=== PATIENT | male | born 1960 | race Caucasian/White ===

== ENCOUNTER 2018-09-11 08:38 | Observation (INO) | payer BC ==
--- NOTE | 2018-09-11 09:08 | ED ---
HPI Chest Pain - HPI Summary HPI Summary: This pt is a 58 y/o male presenting to [facility] via EMS for left sided chest pain today. Pt reports he had gotten up from bed to go start his car when at around 06:15 he began to have left sided chest pain. He notes he went back to his house and thought he was going to faint. He had profuse diaphoresis and lightheadedness, he thought he would faint. Pt then became a little better after sitting down. However, left chest pain persisted with radiation to his back, left jaw, and left arm with tingling. Chest pain is aggravated with deep breaths. He notes he has been coughing lately along with a sinus infection and postnasal drip for about 1 month. Denies pain or swelling in lower extremity, SOB, nausea, vomiting. EMS administered 3 nitro and 324 mg aspirin with relief on third nitro. 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 His PCP is Dr. Camargo. Pt does drink 3 glasses of wine daily. Denies drug or tobacco use (former smoker , quit 13 years ago). PMHx includes HTN and high cholesterol. Pt is compliant with antihypertensive medications, Losartan. Denies FHx of aneurysms. - History of Current Complaint Chief Complaint: EDChestPainROMI Time Seen by Provider: 09/11/18 08:56 Hx Obtained From: Patient Onset/Duration: Started Hours Ago, Still Present Timing: Lasting Hours Current Severity: Moderate Pain Intensity: 6 Pain Scale Used: 0-10 Numeric Chest Pain Location: Left Anterior Chest Pain Radiates: Yes Chest Pain Radiates To:: Back, Arm - left, Jaw - left Aggravating Factor(s): Deep Breaths Alleviating Factor(s): NTG 123, EMS Tx Associated Signs and Symptoms: Positive: Chest Pain, Tingling - in left arm, Lightheadedness, Diaphoresis, Cough, Back Pain, Sinus Discomfrot - sinus infection and postnasal drip. Negative: Shortness of Breath, Swelling, Syncope , Fever, Chills, Nausea, Abdominal Pain, Vomiting, Edema - Allergy/Home Medications Allergies/Adverse Reactions: Allergies Allergy/AdvReac Type Severity Reaction Status Date / Time Penicillins Allergy Swelling Verified 09/11/18 10:13 Of Face,Lips,& Throat Home Medications: Home Medications Losartan/Hydrochlorothiazide [Losartan Potassium/Hydroc 50-12.5 mg] 1 tab PO DAILY 09/11/18 [History Confirmed 09/11/18] PMH/Surg Hx/FS Hx/Imm Hx Endocrine/Hematology History: Denies: Hx Diabetes Cardiovascular History: Reports: Hx Hypertension - Surgical History Surgery Procedure, Year, and Place: APPENDECTOMY Infectious Disease History: No Infectious Disease History: Denies: Traveled Outside the [place] in Last 30 Days - Family History Known Family History: Positive: Hypertension Family History: No FHx of aneurysms. High cholesterol. Both parents of cancer. - Social History Alcohol Use: Daily Alcohol Amount: 3-4 glasses of wine /day Substance Use Type: Reports: None Hx Tobacco Use: Yes Smoking Status (MU): Former Smoker Review of Systems Positive: Skin Diaphoresis. Negative: Fever, Chills Negative: Erythema ENT: Other - POS: sinus infection, postnasal drip Negative: Sore Throat Positive: Chest Pain Positive: Cough. Negative: Shortness Of Breath Negative: Abdominal Pain, Vomiting, Nausea Negative: dysuria, hematuria Musculoskeletal: Other - POS: back and left sided jaw pain Negative: Myalgia, Edema, Other - NEG: lower extremity pain Negative: Rash Neurological: Other - POS: lightheadedness. NEG: dizziness Positive: Paresthesia - in left arm All Other Systems Reviewed And Are Negative: Yes Physical Exam - Summary Physical Exam Summary: Constitutional: Well-developed, Well-nourished, Alert. (-) Distressed Skin: Warm, Dry HENT: Normocephalic; Atraumatic Eyes: Conjunctiva normal Neck: Musculoskeletal ROM normal neck. (-) JVD, (-) Stridor, (-) Tracheal deviation Cardio: Rhythm regular, rate normal, Heart sounds normal; Intact distal pulses; The pedal pulses are 2+ and symmetric. Radial pulses are 2+ and symmetric. (-) Murmur Pulmonary/Chest wall: Effort normal. (-) Respiratory distress, (-) Wheezes, (-) Rales Abd: Soft, (-) Tenderness, (-) Distension, (-) Guarding, (-) Rebound Musculoskeletal: (-) Edema Lymph: (-) Cervical adenopathy Neuro: Alert, Oriented x3 Psych: Mood and affect Normal Triage Information Reviewed: Yes Vital Signs On Initial Exam: Initial Vitals Temp Pulse Resp BP Pulse Ox 98.8 F 87 20 135/98 98 09/11/18 08:42 09/11/18 08:42 09/11/18 08:42 09/11/18 08:42 09/11/18 08:42 Vital Signs Reviewed: Yes Diagnostics - Vital Signs Vital Signs Temp Pulse Resp BP Pulse Ox 09/11/18 08:42 98.8 F 87 20 135/98 98 - Laboratory Result Diagrams: 09/11/18 08:19 09/11/18 08:19 Lab Statement: Any lab studies that have been ordered have been reviewed, and results considered in the medical decision making process. - Radiology Chest XR Radiology Interpretation Completed By: Radiologist Summary of Radiographic Findings: IMPRESSION: No active cardiopulmonary disease. Dr. Mota has reviewed this report. - CT Chest CTA CT Interpretation Completed By: Radiologist Summary of CT Findings: IMPRESSION: No evidence of pulmonary embolus is noted. Dr. Mota has reviewed this report. - EKG 08:50 Cardiac Rate: NL - at 85 bpm EKG Rhythm: Sinus Rhythm Summary of EKG Findings: No STEMI. Chest Pain Course/Dx - Course Assessment/Plan: Pt is a 58 y/o male who presents to the ED via EMS for left sided chest pain today. Pt reports he had gotten up from bed to go start his car when at around 06:15 he began to have left sided chest pain. He notes he went back to his house and thought he was going to faint. He had profuse diaphoresis and lightheadedness, he thought he would faint. Pt then became a little better after sitting down. However, left chest pain persisted with radiation to his back, left jaw, and left arm with tingling. Chest pain is aggravated with deep breaths. He notes he has been coughing lately along with a sinus infection and postnasal drip for about 1 month. Blood work is unremarkable, except for glucose of 159. EKG shows normal sinus rhythm at 85 bpm. Chest XR is negative. Chest CTA shows no evidence of pulmonary embolus is noted. I discussed the case with Dr. Meyers, hospitalist, who accepted the pt for admission. Differential diagnosis acute MA vs PE vs angina. - Chest Pain Differential Diagnosis/HQI/PQRI: Acute MA, Angina, Pulmonary Embolism - Diagnoses Provider Diagnoses: Chest pain, unspecified - Provider Notifications Discussed Care Of Patient With: Sunni Meyers - hospitalist Time Discussed With Above Provider: 10:25 Instructed by Provider To: Admit As Inpatient Discharge - Sign-Out/Discharge Documenting (check all that apply): Patient Departure - Admit [place] [facility] [place]charge Plan Condition: Stable Disposition: ADMITTED TO [facility] Referrals: Rayshawn Camargo DO [Primary Care Provider] - - Attestation Statements Document Initiated by Scribe: Yes Documenting Scribe: Candi Hill Provider For Whom Scribe is Documenting (Include Credential): Cuco Mota MD Scribe Attestation: Candi Rodríguez, scribed for Cuco Mota MD on 09/11/18 at 1042. Status of Scribe Document: Ready
[2018-09-11 09:22] LABS: ABS Basophils 0 10^3/ul (0-0.2); ABS Eosinophils 0.3 10^3/ul (0-0.6); ABS Lymphocytes 2.5 10^3/ul (1.0-4.8); ABS Monocytes 0.8 10^3/ul (0-0.8); ABS Neutrophils 3.2 10^3/ul (1.5-7.7); ABS Nucleated RBC 0 10^3/ul; Hematocrit 44 % (42-52); Hemoglobin 15.1 g/dl (14.0-18.0); Lymphocyte % 36.5 %; Mean Corpuscular HGB Conc 34 g/dl (31-36); Mean Corpuscular Hemoglobin 31 pg (27-31); Mean Corpuscular Volume 91 fL (80-94); Mean Platelet Volume 7.8 fL (7.4-10.4); Nucleated Red Blood Cells % 0.1; Platelet Count 275 10^3/ul (150-450); Red Blood Count 4.85 10^6/ul (4.00-5.40); Red Cell Distribution Width 13 % (10.5-15); White Blood Count 6.9 10^3/ul (3.5-10.8)
[2018-09-11] MEDS ORDERED: Nitroglycerin 2% OINT* 1 GM PAK TOPICAL ONE (09:22)
[2018-09-11 09:38] LABS: Albumin 3.8 g/dL (3.2-5.2); Albumin/Globulin Ratio 1.3 (1-3); BUN/Creatinine Ratio 21.1 (8-20); Calcium 9.7 mg/dL (8.6-10.3); EGFR African American 98.9 (>60); EGFR Non-African American 81.7 (>60); Globulin 2.9 g/dL (2-4); Potassium 4.3 mmol/L (3.5-5.0); Total Bilirubin 0.5 mg/dL (0.2-1.0); Total Protein 6.7 g/dL (6.4-8.9)
[2018-09-11] MEDS ORDERED: Iohexol 350* (CONTRAST) 500 ML MDV IV ONE (09:50)
[2018-09-11] MEDS ORDERED: Acetaminophen TAB* 325 MG PO PRN (11:24)
[2018-09-11] MEDS ORDERED: Morphine VIAL* 4 MG/ML VIAL (1 ml vial) IV PRN (11:24)
[2018-09-11] MEDS: Heparin VIAL(*) 5000 UNITS/ML VIAL (FIVE THOUSAND) SUBCUT SCH ×2 (13:07→22:11)
--- NOTE | 2018-09-11 13:45 | HP ---
CC: Dr. Camargo * HISTORY AND PHYSICAL: DATE OF ADMISSION: 09/11/18 PRIMARY CARE PROVIDER: Dr. Camargo. CHIEF COMPLAINT: Chest pain. HISTORY OF PRESENT ILLNESS: Bob Pratt is a 58-year-old male with history of hypertension, who presented to the hospital complaining of chest pain. The patient stated that the chest pain occurred at awakening at 4:00 a.m. The patient wakes very early in the morning and he stated that at that point he already had upper back pain radiating to his chest. He also stated that he felt somewhat short of breath. He went outside to wipe snow off his car and on the way back he started experiencing more chest pain and more shortness of breath. The chest pain was apparently pleuritic radiating from his upper back. He also felt that he had left side of his jaw numbness and his tongue felt numb for a moment. Currently, he still is experiencing chest pain when he takes a deep breath radiating from his upper thoracic back to the front. He denies any shortness of breath. He had a similar episode of pain 2 years ago at [place] when his blood pressure was elevated, but today, he thinks the pain is more intense. The patient's initial workup included an EKG that showed some baseline abnormalities, but no acute MS and troponin that is negative. The patient is going to be placed on overnight observation with a diagnosis of chest pain, to rule out angina. PAST MEDICAL HISTORY: History of hypertension. MEDICATIONS: Outpatient medications include: 1. Omeprazole on a p.r.n. basis. 2. Losartan/hydrochlorothiazide 50/12.5 mg 1 tablet daily. ALLERGIES: PENICILLIN. FAMILY HISTORY: Positive for both parents having history of hypertension. Father in his 60s secondary to prostate cancer and mother secondary to bladder cancer in her 70s. SOCIAL HISTORY: The patient denies any tobacco or drug use. He drinks 2 to 3 glasses of wine a day. 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 REVIEW OF SYSTEMS: Please see history of present illness. The patient stated that he has good exercise tolerance and his work requires for him to lift and carry things and he has not had any issues with that. The chest pain started happening may be last night, but definitely in the middle of the morning at 4: 00 a.m. as mentioned above. The chest pain is pleuritic radiating to bilateral front of his chest. Currently, the patient still feels some discomfort in his chest at 3 out of 10, which goes up to 5 to 7 out of 10 with expiration. The patient also stated that he had seen his primary care provider for his sinus congestion and postnasal drip. He was advised to use a humidifier, but he has not purchased it yet. The patient denies any problems with sinus pain or fevers or cough. The remaining 12 systems were reviewed with the patient and were otherwise negative. PHYSICAL EXAMINATION GENERAL: The patient is a very pleasant 58-year-old male, who is in no acute distress. Alert, awake, and oriented x3. VITAL SIGNS: Blood pressure of 144/86, heart rate of 70 and regular, respiratory rate 15, oxygen saturation 98% on room air, temperature of 98.8. HEENT: Head atraumatic, normocephalic. Eyes: Pupils are equal, round, and reactive to light and accommodation. Oropharynx clear. Mucosa moist. NECK: Supple. No JVD, no bruits bilaterally. RESPIRATORY: Clear to auscultation bilaterally. CARDIOVASCULAR: Regular rate and rhythm. No murmur. ABDOMEN: Soft. Nontender. Bowel sounds are present in all 4 quadrants. EXTREMITIES: There is no edema. Pulses are +2 bilaterally. There is no clubbing or cyanosis. BACK: The patient has no point tenderness on the upper back palpation, but the pain is definitely worse when he takes a deep breath. NEUROLOGIC: Speech is clear. Cranial nerves II through XII grossly intact. Motor strength is 5/5 bilaterally. DIAGNOSTIC STUDIES/LAB DATA: White blood cell count of 6.9, hemoglobin is 15.1 , hematocrit of 44, and platelets of 175,000. Sodium was 138, potassium of 4.3, chloride 105, carbon dioxide 25, BUN 20, creatinine 0.95. Liver function tests are unremarkable. Troponin of 0. The patient's EKG showed normal sinus rhythm with a heart rate of 85 beats per minute with nonspecific ST changes, but no definite ST elevation or depression in septal leads. Comparing with an EKG from 2014, changes were similar. CT angiogram of the chest obtained today in the ED, impression: "no evidence of pulmonary embolus is noted". ASSESSMENT AND PLAN: 1. In regards to the patient's chest pain, some of the characteristic of the patient's chest pain appear to be angina related viz that it occurred with exercise that the patient had dyspnea with it. Also, the pain radiated to the jaw and was associated with some tongue numbness. On the other hand, the patient's pain right now is purely pleuritic. It still continues despite negative troponin and is definitely worse with taking deep breath and worsened after the patient was shoveling snow off his vehicle. At this point, the patient is going to be placed on overnight observation on personnel monitor bed. His troponins are going to be followed and if the troponins are negative, the patient is going to undergo a cardiac stress test in the morning. 2. In regards to the patient's hypertension, the patient is going to be continued on his losartan throughout his hospital stay. Hydrochlorothiazide is going to be held. 3. For DVT prophylaxis, the patient is going to be placed on heparin subcutaneously. 4. For patient's code status, the patient's code status is full and his surrogate is his . TIME SPENT: Approximately 65 minutes were spent on admission of this patient; more than half of that time was spent [id number] with the patient during the interview and physical exam [id number]/[facility] #: [id number] MTDD
[2018-09-12] MEDS: Heparin VIAL(*) 5000 UNITS/ML VIAL (FIVE THOUSAND) SUBCUT SCH (05:28)
[2018-09-12 07:58] VITALS: BP 141/96
[2018-09-12] MEDS ORDERED: Losartan TAB* 25 MG PO SCH (09:00)
[2018-09-12] MEDS ORDERED: Aspirin EC TAB* 325 MG PO SCH (09:00)
--- NOTE | 2018-09-12 22:31 | DS ---
DISCHARGE SUMMARY: DATE OF ADMISSION: 09/11/18 DATE OF DISCHARGE: 09/12/18 ADMITTING PROVIDER: Dr. Sunni Meyers. ATTENDING PHYSICIAN ON THE DAY OF DISCHARGE: Juan Jose Will MD PRIMARY CARE PROVIDER: Dr. Rayshawn Camargo. CHIEF COMPLAINT: Chest pain. PRINCIPAL DIAGNOSES: 1. Acute coronary syndrome, ruled out. 2. Hypertension. 3. Diabetes mellitus. HISTORY OF PRESENT ILLNESS/HOSPITAL COURSE: Bob Pratt is a 58-year-old male with a past medical history of hypertension; occasional GERD, taking PPIs on a p.r.n. basis. Please see H and P of Dr. Sunni Meyers for full details. He woke up with some substernal chest pressure, episodic shortness of breath, some radiation to the upper back, some jaw numbness and tongue numbness. He was noted to have a similar episode 2 years ago at [place] when his blood pressure was elevated, though the pain was more intense. He was referred to the hospitalist service for admission. Initial troponins were negative at 0.00 , 0.00, 0.01. His EKG demonstrated some inferior Q waves, unchanged from 2014 and T-wave inversion in V1, also unchanged. Received a nuclear medicine stress test on hospital day #1, which showed ejection fraction of 64%. No focal wall motion abnormality. No definite fixed or reversible perfusion defect identified , assessment was low risk. He was noted to be hyperglycemic at 159. Admission hemoglobin A1c was checked and elevated at 6.7, diagnostic of diabetes mellitus. Of note, this returned after he had been discharged. He had been chest pain free and asymptomatic overnight. He was recommended to follow up with his primary care provider, Dr. Camargo and would recommend also outpatient echocardiogram given his abnormal EKGs with inferior Q waves. We will also check a fasting lipid panel as an outpatient, latest in our system was from October 2014, LDL of 155, HDL 39.5. He and his initially were [place] [facility] when they felt unwell and they stopped at the [employer], they measured his blood pressure as elevated to 190/110. He got 3 nitroglycerin and aspirin at that time and had improvement in the symptoms. His blood pressure throughout the hospital stay was improved, mostly 140s/80s. DISCHARGE MEDICATIONS: Include: 1. Aspirin 81 mg daily. 2. Losartan/hydrochlorothiazide 50/12.5 mg daily. 3. Omeprazole 20 mg p.o. p.r.n. daily. FOLLOWUP: He is to follow up with Dr. Rayshawn Camargo within 7 days of discharge. I am recommending he get an echocardiogram and a fasting lipid panel and as noted, his A1c has now returned as diagnostic of diabetes mellitus and consideration for exercise, weight loss, dietary adjustments, and possible metformin is encouraged. TIME SPENT ON DISCHARGE: 35 minutes. [id number]/[facility] #: [id number] ODALYS
== END 2018-09-12 14:30 | disposition home or self-care (01) ==
LOC: ED 08:38 → MEDTELE 11:21
PROVIDERS: ADMIT Internal Medicine; ATTEND Internal Medicine
DX: R07.9 Chest pain, unspecified (principal); I10 Essential (primary) hypertension; E11.9 Type 2 diabetes mellitus without complications; K21.9 Gastro-esophageal reflux disease without esophagitis; Z79.82 Long term (current) use of aspirin; R42 Dizziness and giddiness; R05 Cough; Z87.891 Personal history of nicotine dependence; Z88.0 Allergy status to penicillin
CPT/HCPCS: 36415; 71045; 71275; 78452; 80053; 83036; 83605; 84484; 85025; 93005; 93017; 96372; 99284; A9270-GY; A9502; G0378; J1644; Q9967

== ENCOUNTER 2019-08-23 06:42 | Day surgery (SDC) | payer BC ==
[~2019-08-23 06:42] MED LIST: Buffered Lidocaine 1% SYRIN* 1 ML/SYRINGE INTRADERM ONE; Famotidine IV* 10 MG/ML 2 ML (20 mg) IV ONE; Lactated Ringers 1000 ML Bag* 1,000 ML IV SCH
[2019-08-23] MEDS ORDERED: Buffered Lidocaine 1% SYRIN* 1 ML/SYRINGE INTRADERM ONE (08:36)
[2019-08-23] MEDS ORDERED: Clindamycin 900 MG/D5W BAG(*) 900 MG/50 ML BAG IVPB ONE (08:36)
[2019-08-23] MEDS ORDERED: Famotidine IV* 10 MG/ML 2 ML (20 mg) ONE (08:53)
[2019-08-23] MEDS ORDERED: Lidocaine 1% INJ* 10 MG/ML 30 ML SDV ONE (10:15)
[2019-08-23] MEDS ORDERED: KETAMINE HCL* 50 MG/ML 10 ML VIAL ONE (10:17)
[2019-08-23] MEDS ORDERED: fentaNYL* 50 MCG/ML 2 ML VIAL (100 MCG VIAL) ONE (10:17)
[2019-08-23] MEDS ORDERED: Midazolam* 1 MG/ML 5 ML VIAL (5 MG) ONE (10:17)
[2019-08-23] MEDS ORDERED: fentaNYL* 50 MCG/ML 2 ML VIAL (100 MCG VIAL) IV PRN (10:20)
[2019-08-23] MEDS ORDERED: Naloxone* 0.4 MG/ML 1 ML VIAL IV PRN (10:20)
[2019-08-23] MEDS ORDERED: Ketorolac INJ* 30 MG/ML 1 ML VIAL IV PRN (10:20)
[2019-08-23] MEDS ORDERED: Ondansetron INJ* 2 MG/ML VIAL IV PRN (10:20)
[2019-08-23] MEDS ORDERED: HYDROcodone/ACETAMIN 5-325 MG* 1 TAB PO PRN (10:20)
[2019-08-23] MEDS ORDERED: oxyCODONE/Acetamin 5/325 MG* TAB PO PRN (10:20)
[2019-08-23] MEDS ORDERED: Midazolam* 1 MG/ML 2 ML VIAL (2 MG) ONE (10:58)
--- NOTE | 2019-08-23 11:53 | BRIEFOPN ---
Brief Operative/Procedure Note - Operation Details Pre-Op Diagnosis: SCC of base of tongue Post-Op Diagnosis: Same Procedures: PowerPort placement Surgeon(s)/Proceduralists: Mindi Gamez MD Anesthesia: MAC Estimated Blood Loss: 10ml Findings: Successful placement of Power Port Specimen(s)/Culture(s) Description: None Complications: None
[2019-08-23] MEDS ORDERED: Bupivacaine 0.5%* 50 ML MDV VIAL ONE (11:58)
[2019-08-23 12:53] VITALS: BP 142/81
--- NOTE | 2019-08-25 10:13 | OP ---
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 He is scheduled to undergo chemo or radiation. He was seen in clinic to discuss a port placement. Risks were discussed including but not limited to bleeding, infection, or pneumothorax. He agreed to proceed with the procedure. DESCRIPTION: The patient was brought to the OR and placed in the supine position of our table. SCDs were placed. The patient was warmed. He received clindamycin. MAC anesthesia was administered. The right neck and upper chest were prepped and draped in the usual sterile fashion. A timeout confirming the patient's name, date of , and procedure was called. Lidocaine 1% was injected into the skin over the right internal jugular vein. The vein was cannulated with a needle under ultrasound guidance. The wire was advanced through the needle, and the needle was removed. Fluoroscopy confirmed correct placement of the wire in the superior vena cava. Next, lidocaine 1% was injected into the skin at the planned port site. A transverse incision was made with a scalpel and carried down to the fascia with electrocautery. A pocket under the skin was made for the port using blunt dissection and electrocautery. Lidocaine 1% was then injected into the skin overlying the catheter location. A stab incision was made at the wire. The catheter was then tunneled through the subcutaneous tissue from the pocket to the wire. The vein was dilated, and then the pull-away sheath was placed into the vein. Fluoroscopy confirmed placement of the sheath in the superior vena cava. The catheter was advanced into the sheath as the sheath was pulled away and out. Under fluoroscopy, the catheter was pulled back until the tip was at the cavoatrial junction. The catheter was then cut to the appropriate length. The catheter was connected to the port. The port was placed into the subcutaneous pocket and sutured to the fascia using 3-0 Prolene on either side. A Velasquez needle was used to draw back blood and flush the port. A total of 4 mL of heparin 5000 units/5 mL was flushed through the port and catheter. The subcutaneous pocket was closed with interrupted 3-0 Vicryl in the deep dermal layer. The skin was closed with a running 4-0 Vicryl. The neck incision was closed with 4-0 Vicryl. Steri-Strips were placed over both incisions. The chest incision was covered with sterile gauze and Tegaderm. The patient tolerated the procedure well. He was brought to recovery in stable condition. A chest x-ray in recovery confirmed correct placement of the port and catheter in the superior vena cava without complication.
== END 2019-08-23 13:12 | disposition home or self-care (01) ==
LOC: OR 06:42
PROVIDERS: ATTEND Surgery Surgical Critical Care
DX: C01 Malignant neoplasm of base of tongue (principal); Z87.891 Personal history of nicotine dependence; I10 Essential (primary) hypertension; K21.9 Gastro-esophageal reflux disease without esophagitis; R73.01 Impaired fasting glucose
CPT/HCPCS: 71045; 76000; C1788; J1642; J2250; J3010; J3490

== ENCOUNTER 2019-08-26 09:11 | Observation (INO) | payer BC ==
[2019-08-26] MEDS ORDERED: Clindamycin 900 MG/D5W BAG(*) 900 MG/50 ML BAG IVPB ONE (12:45)
[2019-08-26] MEDS ORDERED: fentaNYL* 50 MCG/ML 2 ML VIAL (100 MCG VIAL) ONE (13:18)
[2019-08-26] MEDS ORDERED: Midazolam* 1 MG/ML 10 ML VIAL (10 MG) ONE (13:18)
[2019-08-26] MEDS ORDERED: Acetaminophen TAB* 325 MG PO PRN (13:32)
[2019-08-26] MEDS ORDERED: Ondansetron INJ* 2 MG/ML VIAL IV PRN (13:34)
--- NOTE | 2019-08-26 14:39 | HP ---
History of Present Illness - History of Present Illness Reason for Visit: s/p PEG tube insertion, tonsillar ca History of Present Illness: Pt with tonsillar CA, started XRT last Monday, needs PEG tube, successfully placed 08-26-19 - Past Medical History Cardiac: HTN Gastrointestinal: GERD Heme/Onc: Cancer - Past Surgical History Past Surgical History: None - Past Family History Family History: None - Past Social History Smoke: Quit Alcohol: Rare Drugs: None Review of Systems - Medications/Allergies Allergies/Adverse Reactions: Allergies Allergy/AdvReac Type Severity Reaction Status Date / Time Penicillins Allergy Intermediate Swelling Verified 08/16/19 15:12 Of Face,Lips,& Throat Medications: Current Medications Acetaminophen (Tylenol Tab*) 650 mg PO Q6H PRN PRN Reason: PAIN - MILD Hydromorphone HCl (Dilaudid Inj1s*) 1 mg IV SLOW PU Q4H PRN PRN Reason: PAIN - SEVERE Sodium Chloride (Ns 0.9% 1000 Ml) 1,000 mls @ 75 mls/hr IV PER [facility] [place] Ondansetron HCl (Zofran Inj*) 4 mg IV Q4H PRN PRN Reason: NAUSEA/VOMITING
[2019-08-26] MEDS: NS 0.9% 1000 ML** 1,000 ML IV SCH (15:34)
--- NOTE | 2019-08-26 16:04 | PN ---
Progress Note - Progress Note Date of Service: 08/26/19 Note: post peg check doing well, very minimal pain thirsty VSS nad, alert +bs, soft, sides non tender stable, will monitor Rashard Grimaldo mD
--- NOTE | 2019-08-26 16:12 | PRO ---
CC: Dr. Camargo; Dr. Barreto * DATE OF PROCEDURE: 08/26/19 - ROOM #[id number] PROCEDURE: EGD with PEG tube placement. INDICATION: Tonsillar cancer, need for PEG tube. REFERRING PHYSICIAN: Dr. Camargo. MEDICATIONS GIVEN: 1. Clindamycin 900 mg IV x1. 2. 100 mcg IV fentanyl. 3. 11 mg IV Versed. DESCRIPTION OF PROCEDURE: After the EGD procedure with PEG tube placement including risks, benefits, and alternatives, not limited to perforation, surgery , and/or and infection were related to the patient, written consent was then obtained, IV medication was given including clindamycin, and a bite-block was placed between the teeth. An Olympus gastroscope was then inserted into the patient's mouth, advanced down the esophagus, into the stomach, into the distal duodenal. In the esophagus, the GE junction was normal. Scope was advanced through the GE junction into the body of the stomach. Retroflex view was unremarkable. Forward view did reveal a few gastric erosions. Additionally , the scope was passed through the widely patent pylorus, into the duodenal bulb which contained erosions. Scope was withdrawn into the stomach where a CLOtest was obtained to rule out H. pylori. At that point, I evaluated his abdomen. It had been shaved and cleaned prior. Using the 5 fingerbreadths down , 5 fingerbreadths over rule, I then found a spot using finger indentation; however, I really could not see my finger. I moved more medial and more proximal and eventually I was able to find a very good finger indentation spot approximately 5 fingerbreadths down and 2 to 3 fingerbreadths over from the bottom of the xiphoid. He does have a very high xiphoid. All of this also was confirmed with good transillumination of the area. The area was marked and then was cleaned again. I then used 1% lidocaine to anesthetize the overlying skin. The finder needle was then inserted. It was not seen to extend into the lumen of the stomach. I replaced it with a trocar needle and it extended into the stomach with just 3 cm needle insertion. I withdrew the trocar needle and placed the blue wire through the overlying hub. It was grasped with a snare and was withdrawn from the patient. I then tied the PEG tube onto the blue wire and the PEG tube was successfully pulled into place. I then performed a second-look endoscopy, which confirmed successful placement of the PEG tube in the patient's stomach. The skin was at approximately 2-3/4 to 3 cm. The bumper was placed at 4 cm. The patient tolerated the procedure well and will be admitted to the hospital for a 23-hour observation as per my typical protocol. IMPRESSION: 1. Complete upper endoscopy into the distal duodenum with successful PEG tube placement in the stomach and biopsy for Helicobacter pylori. 2. Please see the body of the procedure report. [id number]/[facility] #: [id number] [facility]
[2019-08-26] MEDS: HYDROmorphone INJ1* 1 MG/ML SYRINGE IV SLOW PU PRN ×2 (16:49→23:19)
[2019-08-27] MEDS: NS 0.9% 1000 ML** 1,000 ML IV SCH (04:34)
[2019-08-27 05:32] LABS: ABS Eosinophils 0.1 10^3/ul (0-0.6); ABS Lymphocytes 0.8 10^3/ul (1.0-4.8); ABS Monocytes 1.4 10^3/ul (0-0.8); ABS Neutrophils 6.3 10^3/ul (1.5-7.7); Eosinophil % 1.5 %; Hematocrit 39 % (42-52); Lymphocyte % 9.2 %; Mean Corpuscular HGB Conc 36 g/dL (31-36); Mean Corpuscular Hemoglobin 33 pg (27-31); Mean Corpuscular Volume 92 fL (80-94); Mean Platelet Volume 7.9 fL (7.4-10.4); Platelet Count 200 10^3/uL (150-450); Red Blood Count 4.21 10^6 /uL (4.18-5.48); Red Cell Distribution Width 13 % (10-15); White Blood Count 8.7 10^3/uL (3.5-10.8)
[2019-08-27] MEDS ORDERED: Calcium Carbonate CHEW TAB* 500 MG (TUMS) PO PRN (10:11)
[2019-08-27] MEDS ORDERED: Pantoprazole IV* 40 MG IV SCH (11:00)
[2019-08-27 15:30] VITALS: BP 142/94
--- NOTE | 2019-08-27 20:49 | DS ---
DISCHARGE SUMMARY: DATE OF ADMISSION: 08/26/19 DATE OF DISCHARGE: 03/09 DISCHARGE DIAGNOSES: 1. Status post percutaneous gastrostomy placement. 2. Squamous cell cancer of the throat. 3. Hypertension. 4. Gastroesophageal reflux disease. HISTORY: This 58-year-old man has begun radiation treatment for an ENT cancer. Now one week in, he is still able to eat. He does have a history of GERD, taking omeprazole sporadically though in the last couple of weeks he has had an increased need for Tums and has taken a few more omeprazole than usual. He denies dietary indiscretions over the holidays. Yesterday, he had a PEG tube placed. EG junction was said to be normal. There were no technical problems. He says that overnight he was uncomfortable with indigestion. This morning after coming back from his radiation treatment, he had some vomiting and said that he does that very very rarely. He seemed to describe quite classic acid dyspepsia, thus was given Tums and a dose of IV pantoprazole and instructed to restart his omeprazole when he got home and take it daily throughout the rest of his treatment course. A couple of hours later, he was feeling much better. He had instructions from the dietary department on care of his tube. He does not require tube feedings at the moment. CONDITION ON DISCHARGE: Good. DISCHARGE MEDICATIONS: Unchanged from admission and he will be takin. Losartan/hydrochlorothiazide. 2. Tums p.r.n. 3. Omeprazole 20 mg every morning. DISCHARGE FOLLOWUP: Will be with Dr. Irvin, Dr. Barreto and his primary physician , Dr. Camargo. [id number]/[facility] #: [id number] [facility]ITAL[facility]
== END 2019-08-27 16:53 | disposition home or self-care (01) ==
LOC: ENDO 09:11 → SSU 13:28
PROVIDERS: ADMIT Internal Medicine Gastroenterology; ATTEND Internal Medicine Gastroenterology
DX: C14.0 Malignant neoplasm of pharynx, unspecified (principal); I10 Essential (primary) hypertension; K21.9 Gastro-esophageal reflux disease without esophagitis
CPT/HCPCS: 36415; 85025; 87077; 96374; 96375; 96376; 99156; 99157; G0378; J1170; J2250; J2405; J3010

== ENCOUNTER 2019-08-30 11:39 | Inpatient (IN) | payer BC ==
[2019-08-30] MEDS ORDERED: Magnesium Hydroxide LIQ* 30 ML UDC PO ONE (12:03)
[2019-08-30] MEDS ORDERED: Enoxaparin(*) 40 MG/0.4 ML SYR SUBCUT SCH (13:00)
--- OUTSIDE RECORDS SUMMARY | 2019-08-30 13:34 | XMS REPORT | Continuity of Care Document ---
:1960 External Reference #:[id number] Author Name Chau Kc M.D. Address [address] [place] [address] Care Team Providers Name Role Phone Rayshawn Camargo D.O. Care Team Information Claims Processor [phone] Problems Active Problems Provider Date Malignant tumor of oropharynx Fang Eddy NP Onset: 06/27/2019 Social History Type Date Description Comments Sex Unknown Tobacco Use Start: Unknown End: Unknown Former Cigarette Smoker ETOH Use Daily Use Of Alcohol Recreational Drug Use Has Used In Past Allergies, Adverse Reactions, Alerts Active Allergies Reaction Severity Comments Date Penicillin 04/10/2019 Medications Active Medications SIG Qnty Indications Ordering Provider Date Nasonex 2 squirts each 51gm Chau Kc M.D. 06/20/2019 50mcg/Act nostril every day Suspension Losartan 1 by mouth every Unknown Potassium/Hydrochlorot day hiazide 50-12.5mg Tablets History Medications Percocet 1-2 by mouth four 20tabs Chau Kc, 06/20/2019 - 5-325mg times a day as M.DTatyana 06/26/2019 Tablets needed for pain Immunizations Description No Information Available Vital Signs Date Vital Result Comment 07/05/2019 11:41am Weight 193.00 lb Height 67 inches 5'7" BMI (Body Mass Index) 30.2 kg/m2 Heart Rate 114 /min O2 % BldC Oximetry 97 % Body Temperature 98.1 F Pain Level 0 06/27/2019 3:41pm Weight 190.00 lb Height 67 inches 5'7" BMI (Body Mass Index) 29.8 kg/m2 BP Systolic 125 mmHg BP Diastolic 78 mmHg Heart Rate 88 /min O2 % BldC Oximetry 96 % Body Temperature 98.2 F Pain Level 0 Results Test Acquired Date Facility Test Result H/L Range Note Laboratory test 07/05/2019 [facility] Point of Care 141 mg/dL High 70-100 [address] [place] [address] [phone] Laboratory test 06/20/2019 [facility] Surgical SEE RESULT [address] [address] [phone] Laboratory test 04/23/2019 [facility] Cytology SEE RESULT 3 , [address] Non[place] [address] [phone] 1 Land Development Project Manager: [id number] 2 SEE RESULT BELOW Name: SACHA BABB Markie : [address]: Chau Kc MD Acct: [id number] Unit: [id number] AGE: 58 Location: [facility] Re06/20/19 SEX: M Status: REG REF SPEC: [id number] JOSE: 06/20/19 [facility] [address]: Chau Kc MD REQ: [id number] RECD: 06/20/19 STATUS: SOUT _ ORDERED: LEVEL 4, IMMUNO-FIRST, IMMUNO-ADDL/6 COMMENTS: [id number] ADDENDUM A p16 immunohistochemical stain, with appropriately reacting controls, was performed and is strongly and diffusely positive, 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 Addendum Signed (signature on file) Hina Hearn MD 02/06 0949 FINAL DIAGNOSIS Right neck, excision: -- Metastatic basaloid squamous cell carcinoma. COMMENT: Immunohistochemical stains, with appropriately reacting controls, were performed with the following results: CK5/6 positive P63 positive CD45 negative in malignant cells, positive in background lymphocytes CD56 negative Chromogranin negative Synaptophysin negative Dr. Sen reviewed this case in intradepartmental consultation and agrees with the diagnosis. A p16 immunohistochemical stain is pending to search for HPV-related viral cytopathic effect and the results will be reported in an CONTINUED ON NEXT PAGE DEPARTMENT OF PATHOLOGY, [address] [place] [address] Graham Sen M.D. Director [facility] # [id number] addendum. CLINICAL HISTORY No history given GROSS DESCRIPTION The specimen is received in formalin labeled, Right Branchial Cyst, and consists of a 3.0 x 2.7 by up to 1.5 cm mckinnon-red rubbery focally disrupted unilocular cyst with a small amount of adherent yellow fat. The cyst contains scant blood-tinged fluid. The cut surface is rubbery to focally friable mckinnon-pink with mild focal hemorrhage. The specimen is inked, serially sectioned and entirely submitted in four cassettes. Signed by and Reported on: Hina Hearn MD 06/25/19 1045 END OF REPORT DEPARTMENT OF PATHOLOGY, [address] [place] [address] Graham Sen M.D. Director [facility] # [id number] 3 [id number] 4 SEE RESULT BELOW Name: SACHA BABB : [address]: Chau Kc MD Acct: [id number] Unit: [id number] AGE: 58 Location: [facility] Re04/23/19 SEX: M Status: REG REF SPEC: [id number] JOSE: 04/23/19 [facility] [address]: Chau Kc MD REQ: [id number] RECD: 04/23/19 STATUS: SOUT _ ORDERED: [facility], LEVEL 4 COMMENTS: [id number] FINAL DIAGNOSIS Neck, right, fine needle aspirate: --Inflammatory cells. A cell block was prepared in the evaluation of this specimen. Smears and cell block reveal similar findings. A. NECK RIGHT - RIGHT NECK MASS FINE NEEDLE ASPIRATION CLINICAL HISTORY Right neck mass. GROSS DESCRIPTION 1 Alcohol fixed slide(s) received from clinician, 5 Air dried slide(s)(4 stained, 1 unstained) and needle rinse in formalin for cell block. Signed by and Reported on: Hina Hearn MD 04/25/19 1640 END OF REPORT DEPARTMENT OF PATHOLOGY, [address] [place] [address] Graham Sen M.D. Director [facility] # [id number] Procedures Date Code Description Status 06/20/2019 23954 Exc.Branchial Cleft Cyst Completed 06/20/2019 06417 Exc.Branchial Cleft Cyst Completed 06/20/2019 96912 Anesthesia Head Neck Posterior Trunk Integumentary Unspec Completed 04/23/2019 10287 Fine Needle Aspiration Biopsy Inlcd Ultrasound Guidance Completed 04/10/2019 12476 Ultrasound Head/Neck Completed 04/10/2019 66371 Fiberoptic Laryngoscopy,Diag. Completed Medical Devices Description No Information Available Encounters Type Date Location Provider Dx Diagnosis Office Visit 04/30/2019 Main Office Chau Kc M.D. R22.1 Localized swelling, 3:45p mass and lump, neck R13.10 Dysphagia, unspecified Office Visit 04/10/2019 9:30a Main Office Chau Kc, R22.1 Localized swelling, M.D. mass and lump, neck R13.10 Dysphagia, unspecified Assessments Date Code Description Provider 07/05/2019 C76.0 Malignant neoplasm of head, face and neck Chau Kc M.D. 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 04/30/2019 R22.1 Localized swelling, mass and lump, neck Chau Kc M.D. 04/30/2019 R13.10 Dysphagia, unspecified Chau Kc M.D. 04/23/2019 R22.1 Localized swelling, mass and lump, neck Chau Kc M.D. 04/10/2019 R22.1 Localized swelling, mass and lump, neck Chau Kc M.D. 04/10/2019 R13.10 Dysphagia, unspecified Chau Kc M.D. Plan of Treatment No Information Available Functional Status Description No Information Available Mental Status Description No Information Available Referrals Refer to Dr Reason for Referral Status Appt Date Chau Kc M.D. AUTH FOR PET SCAN Created [address] [place] [phone] Chau Kc M.D. NO AUTH REQ FOR SURGERY Created [address] [place] [phone]
--- OUTSIDE RECORDS SUMMARY | 2019-08-30 13:34 | XMS REPORT | Continuity of Care Document ---
:1960 External Reference #:[id number] Author Name Mindi Gamez MD (transmitted by agent of provider Carol Tello) Address [address] [place] [id number] Care Team Providers Name Role Phone Justin Nunez M.D. - Hematology & Care Team Information Public Health Program Manager Oncology Rayshawn Camargo DO - Family Care Team Information Public Health Program Manager Medicine Problems Description No Information Available Social History Type Date Description Comments Sex Unknown ETOH Use Drinks 3 Alcoholic Beverages Per Day Tobacco Use Start: Unknown End: Patient is a former smoker Unknown Recreational Drug Use Denies Drug Use Smoking Status Reviewed: 08/01/19 Patient is a former smoker Exercise Type/Frequency Does not exercise Allergies, Adverse Reactions, Alerts Active Allergies Reaction Severity Comments Date Penicillin 07/23/2019 Medications Active Medications SIG Qnty Indications Ordering Provider Date Losartan 1 by mouth every Ronald G. Jamesvipin, 07/23/2019 Potassium/Hydrochlorot day hiazide 50-12.5mg Tablets Immunizations Description No Information Available Vital Signs Date Vital Result Comment 08/01/2019 2:10pm Height 67.5 inches 5'7.50" Weight 199.00 lb Heart Rate 72 /min BP Systolic 132 mmHg BP Diastolic 80 mmHg Respiratory Rate 16 /min Body Temperature 98.4 F BMI (Body Mass Index) 30.7 kg/m2 Results Description No Information Available Procedures Description No Information Available Medical Devices Description No Information Available Encounters Description No Information Available Assessments Date Code Description Provider 08/01/2019 C01 Malignant neoplasm of base of tongue Mindi Gamez MD Plan of Treatment Future Appointment(s):08/22/2019 9:30 am - Mindi Gamez MD at [facility] [address]08/09/2019 1:00 pm - Mindi Gamez MD at [facility] [address]08/01/2019 - Mindi Gamez, MDC01 Malignant neoplasm of base of tongueComments: Will schedule port placement for 08/09. Functional Status Description No Information Available Mental Status Description No Information Available Referrals Description No Information Available
--- OUTSIDE RECORDS SUMMARY | 2019-08-30 13:34 | XMS REPORT | Continuity of Care Document ---
:1960 External Reference #:[id number] Author Name Rashard Grimaldo MD Address [address] [place] [address] [place] [address] Care Team Providers Name Role Phone Edwin Barreto MD - Radiation Care Team Information Tractor Operator Helper Unavailable Oncology Rayshawn Camargo DO Care Team Information Tractor Operator Helper [phone] Problems Active Problems Provider Date Malignant tumor of tonsillar fossa Rashard Grimaldo MD Onset: 08/07/2019 Social History Type Date Description Comments Sex Unknown Tobacco Use Start: Unknown End: Unknown Patient is a former smoker Smoking Status Reviewed: 08/07/19 Patient is a former smoker Allergies, Adverse Reactions, Alerts Active Allergies Reaction Severity Comments Date Penicillin 08/07/2019 Medications Active Medications SIG Qnty Indications Ordering Provider Date Losartan Rayshawn Camargo DO Potassium/Hydrochlorothiazide 50-12.5mg Tablets Aspirin 81mg Juan Jose Will Tablets DR Corrigan Description No Information Available Vital Signs Date Vital Result Comment 08/07/2019 3:43pm Height 67.5 inches 5'7.50" Weight 199.00 lb BP Systolic 142 mmHg BP Diastolic 93 mmHg Heart Rate 99 /min BMI (Body Mass Index) 30.7 kg/m2 Results Description No Information Available Procedures Description No Information Available Medical Devices Description No Information Available Encounters Description No Information Available Assessments Date Code Description Provider 08/07/2019 C09.0 Malignant neoplasm of tonsillar fossa Rashard Grimaldo MD Plan of Treatment 08/07/2019 - Rashard Grimaldo MDC09.0 Malignant neoplasm of tonsillar fossaComments:RISKS AND BENEFITS OF THE PROCEDURE WERE DISCUSSED WITH PATIENT. I had a very long discussion with the patient regarding his workup and treatment for his head and neck cancer. We had a long and robin discussion regarding the need for possible need for PEG tube. I showed him examples of the PEG tube and how the procedure will be performed he would like to proceed forward we will make arrangementsfor he will require preprocedure clindamycin he understands he will be admitted to the hospital afterwards for 23 hour OPV for teaching and a nutritional consult Functional Status Description No Information Available Mental Status Description No Information Available Referrals Description No Information Available
--- OUTSIDE RECORDS SUMMARY | 2019-08-30 13:34 | XMS REPORT | Continuity of Care Document ---
:1960 External Reference #:[id number] Author Name Chau Kc M.D. (transmitted by agent of provider Sofiya Villa) Address [address] [place] [address] Care Team Providers Name Role Phone Rayshawn Camargo D.O. Care Team Information Cable Tool Operator [phone] Problems Active Problems Provider Date Malignant tumor [...] Percocet 1-2 by mouth four 20tabs Chau Kc 06/20/2019 - 5-325mg times a day as [...] Test Result H/L Range Note Laboratory test 06/20/2019 [facility] Surgical SEE RESULT [address] [place] [address] [phone] Laboratory test 04/23/2019 [facility] Cytology SEE RESULT 2 , [address] Non-Entry [place] [address] [phone] 1 SEE RESULT BELOW Name: BOB BABB : [address]: Chau Kc MD Acct: [id number] Unit: [id number] AGE: 58 Location: [facility] Re06/20/19 SEX: M Status: REG REF SPEC: [id number] JOSE: 06/20/[address]: Chau Kc MD REQ: [id number] RECD: 06/20/19 STATUS: SOUT _ ORDERED: LEVEL 4, IMMUNO-FIRST, IMMUNO-ADDL/6 COMMENTS: [id number] ADDENDUM A p16 immunohistochemical stain, with appropriately [...] CONTINUED ON NEXT PAGE DEPARTMENT OF PATHOLOGY, [address] [place] [address] Graham Sen M.D. Director [facility] # [id number] addendum. CLINICAL HISTORY No history given GROSS [...] 1045 END OF REPORT DEPARTMENT OF PATHOLOGY, [address] [place] [address] Graham Sen M.D. Director [facility] # [id number] 2 [id number] SEE RESULT BELOW Name: BOB BABB : [address]: Chau Kc MD Acct: [id number] Unit: [id number] AGE: 58 Location: [facility] Re04/23/19 SEX: M Status: REG REF SPEC: [id number] JOSE: 04/23/19-[address]: Chau Kc MD REQ: [id number] RECD: 04/23/19 STATUS: SOUT _ ORDERED: [facility], LEVEL 4 COMMENTS: [id number] FINAL DIAGNOSIS Neck, right, fine needle aspirate: [...] 1640 END OF REPORT DEPARTMENT OF PATHOLOGY, [address] [place] [address] Graham Sen M.D. Director [facility] # [id number] Procedures Date Code Description Status 06/20/2019 17192 Exc.Branchial Cleft Cyst Completed 06/20/2019 76637 Exc.Branchial Cleft Cyst Completed 06/20/2019 59955 Anesthesia Head Neck Posterior Trunk Integumentary Unspec Completed 04/23/2019 16784 Fine Needle Aspiration Biopsy Inlcd Ultrasound Guidance Completed 04/10/2019 08495 Ultrasound Head/Neck Completed 04/10/2019 49950 Fiberoptic Laryngoscopy,Diag. Completed Medical Devices Description No Information Available Encounters Type Date Location Provider Dx Diagnosis Office Visit 04/30/2019 Main Office Cahu Kc M.D. R22.1 Localized swelling, 3:45p mass and lump, neck R13.10 Dysphagia, unspecified Office Visit 04/10/2019 9:30a Main Office Chau Kc, R22.1 Localized swelling, M.D. 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 AUTH FOR PET SCAN Created [address] [place] [phone] Chau Kc M.D. NO AUTH REQ FOR SURGERY Created [address] [place] [phone]
[2019-08-30] MEDS: Heparin VIAL(*) 5000 UNITS/ML VIAL (FIVE THOUSAND) SUBCUT SCH ×2 (13:56→20:56)
[2019-08-30] MEDS: NS 0.9% w/ 20 Meq KCL 1000 ML* 1,000 ML IV SCH ×2 (15:12→20:59)
[2019-08-30] MEDS ORDERED: Sodium Phosphate ADULT ENEMA* 118 ml bottle PR ONE (16:28)
[2019-08-30] MEDS: Senna TAB 8.6 mg* TAB PO SCH (20:50)
[2019-08-31] MEDS: NS 0.9% w/ 20 Meq KCL 1000 ML* 1,000 ML IV SCH ×4 (02:11→19:06)
[2019-08-31] MEDS: Heparin VIAL(*) 5000 UNITS/ML VIAL (FIVE THOUSAND) SUBCUT SCH ×3 (05:46→21:13)
[2019-08-31 06:15] LABS: ABS Basophils 0.1 10^3/ul (0-0.2); ABS Eosinophils 0.1 10^3/ul (0-0.6); ABS Lymphocytes 0.8 10^3/ul (1.0-4.8); ABS Monocytes 1.2 10^3/ul (0-0.8); ABS Neutrophils 3.9 10^3/ul (1.5-7.7); Eosinophil % 1.7 %; Hematocrit 33 % (42-52); Lymphocyte % 13.8 %; Mean Corpuscular HGB Conc 36 g/dL (31-36); Mean Corpuscular Hemoglobin 33 pg (27-31); Mean Corpuscular Volume 90 fL (80-94); Platelet Count 189 10^3/uL (150-450); Red Blood Count 3.66 10^6 /uL (4.18-5.48); Red Cell Distribution Width 12 % (10-15); White Blood Count 6.1 10^3/uL (3.5-10.8)
[2019-08-31 06:22] LABS: Albumin 3.1 g/dL (3.2-5.2); Albumin/Globulin Ratio 1.4 (1-3); BUN/Creatinine Ratio 15.5 (8-20); EGFR African American 15.1 (>60); EGFR Non-African American 12.5 (>60); Globulin 2.2 g/dL (2-4); Potassium 3.8 mmol/L (3.5-5.0); Total Bilirubin 0.4 mg/dL (0.2-1.0); Total Protein 5.3 g/dL (6.4-8.9)
[2019-08-31] MEDS: Senna TAB 8.6 mg* TAB PO SCH ×2 (08:04→21:08)
[2019-08-31] MEDS: Acetaminophen TAB* 325 MG PO PRN (23:11)
[2019-09-01] MEDS: NS 0.9% w/ 20 Meq KCL 1000 ML* 1,000 ML IV SCH ×3 (00:36→11:08)
[2019-09-01] MEDS: Heparin VIAL(*) 5000 UNITS/ML VIAL (FIVE THOUSAND) SUBCUT SCH ×3 (05:34→22:05)
[2019-09-01 06:05] LABS: BUN/Creatinine Ratio 13.8 (8-20); Calcium 8.1 mg/dL (8.6-10.3); EGFR African American 14.1 (>60); EGFR Non-African American 11.7 (>60); Potassium 4.6 mmol/L (3.5-5.0)
[2019-09-01] MEDS: Senna TAB 8.6 mg* TAB PO SCH ×2 (10:01→22:02)
[2019-09-01] MEDS: Pantoprazole TAB * 40 MG TAB PO PRN (11:23)
[2019-09-01] MEDS ORDERED: Calcium Carbonate CHEW TAB* 500 MG (TUMS) PO PRN (12:37)
[2019-09-01] MEDS ORDERED: Furosemide IV* 10 MG/ML 2 ML VIAL (20 MG) IV ONE (12:38)
[2019-09-01] MEDS ORDERED: NS 0.9% w/ 20 Meq KCL 1000 ML* 1,000 ML IV SCH (12:38)
[2019-09-01] MEDS ORDERED: Zolpidem TAB* 10 MG PO PRN (12:39)
[2019-09-01 13:14] LABS: Uric Acid 9.1 mg/dL (4.4-7.6)
[2019-09-02] MEDS: Heparin VIAL(*) 5000 UNITS/ML VIAL (FIVE THOUSAND) SUBCUT SCH ×4 (05:48→20:14)
[2019-09-02] MEDS: Senna TAB 8.6 mg* TAB PO SCH ×2 (07:32→20:14)
[2019-09-02 07:49] LABS: BUN/Creatinine Ratio 12.5 (8-20); Calcium 8.4 mg/dL (8.6-10.3); EGFR African American 14.4 (>60); EGFR Non-African American 11.9 (>60)
[2019-09-02] MEDS: Acetaminophen TAB* 325 MG PO PRN ×2 (09:44→16:04)
--- NOTE | 2019-09-02 09:45 | PN ---
Progress Note - Progress Note Date of Service: 09/02/19 SOAP: Subjective: [Urinating well. Mild backache, mild BAHENA. No n/v. Edema has improved. Mild cough.] Objective: [ Vital Signs: Temp Pulse Resp BP Pulse Ox 98.8 F 75 18 155/74 98 09/02/19 03:15 09/02/19 03:15 09/02/19 03:15 09/02/19 03:15 09/02/19 03:15 Acetaminophen (Tylenol Tab*) 650 mg PO Q4H PRN PRN Reason: pain/fever Last Admin: 08/31/19 23:11 Dose: 650 mg Calcium Carbonate (Tums*) 500 mg PO Q4H PRN PRN Reason: HEARTBURN Last Admin: 09/02/19 07:28 Dose: 500 mg Heparin Sodium (Porcine) (Heparin Vial(*)) 5,000 units SUBCUT Q8H [facility] Last Admin: 09/02/19 05:48 Dose: Not Given Potassium Chloride/Sodium Chloride (Ns 0.9% W/ 20 Meq Kcl 1000 Ml*) 1,000 mls @ 150 mls/hr IV PER RATE [facility] Last Admin: 09/01/19 17:00 Dose: 150 mls/hr Ondansetron HCl (Zofran Inj*) 4 mg IV Q4H PRN PRN Reason: NAUSEA/VOMITING Oxycodone/Acetaminophen (Percocet 5/325 Tab*) 1 tab PO Q8H PRN PRN Reason: PAIN - MODERATE Pantoprazole Sodium (Protonix Tab*) 40 mg PO DAILY PRN PRN Reason: INDIGESTION Last Admin: 09/01/19 11:23 Dose: 40 mg Senna (Senokot 8.6 Mg Tab*) 1 tab PO BID [facility] Last Admin: 09/02/19 07:32 Dose: Not Given Zolpidem Tartrate (Ambien Tab*) 10 mg PO BEDTIME PRN PRN Reason: INSOMNIA Last Admin: 09/01/19 22:02 Dose: 10 mg Laboratory Results - last 24 hr 09/01/19 09/02/19 05:35 06:00 Sodium 136 137 Potassium 4.6 Chloride 109 112 H Carbon Dioxide 22 20 L Anion Gap 5 BUN 71 H 63 H Creatinine 5.13 H 5.05 H Est GFR ( Amer) 14.1 14.4 Est GFR (Non-Af Amer) 11.7 11.9 BUN/Creatinine Ratio 13.8 12.5 Glucose 97 98 Uric Acid 9.1 H Calcium 8.1 L 8.4 L Magnesium 2.0 Exam: Gen: Well appearing 58 yo male in NAD HEENT: MMM, no mucositis or thrush CV: RRR, no m/r/g Resp: CTA, no w/c/r] Assessment: [This is a 58 yo male with T2N1M0 p16+ base of R tongue squamous cell carcinoma who started concurrent chemotherapy and radiation 08/22/19 and presented for routine weekly labs found to have grade 3 RADHA (Cr ~4.9). Hospitalized for supportive care with no improvement in CrCl as of yet with continued good urine output.] Plan: [1. RADHA secondary to cisplatin, grade 3 - good urine output, minimal peripheral edema - cont IVF at 150 ml/h - noted elevated uric acid to 9.1 - will defer to nephrology regarding recommendations for allopurinol - requested nephrology consultation - cont I/O monitoring 2. Head/neck CA - cont RT - plan for additional chemotherapy will depend on recovery from this acute episode 3. HTN - ARB/diuretic held at admission for RADHA - noted moderate HTN - start amlodipine Dispo: cont inpatient stay. Nephrology consultation pending.]
[2019-09-02] MEDS: amLODIPine TAB* 5 MG PO SCH (10:08)
[2019-09-02 10:52] LABS: Potassium 5.2 mmol/L (3.5-5.0)
--- NOTE | 2019-09-02 11:08 | CONSULT ---
Consult Consult: Consult requested for: RADHA. Consult requested by: Karsten Carolina, Hem/Oncology Performed by Dr. Edil Arevalo, [facility] Nephrology 09/02/2018 Otherwise healthy 58 YO WM SCC of Tongue base, started concurrent ChemoRx & XRT 08/22/19 and presented for routine weekly labs found in RADHA. RADHA likely secondary to high dose Cisplatin, non-oliguric, on IVF NS 150 ml/h. Of note, Uric Acid 9. Losartan/HCTZ, on hold, switched to Amlodipine, BP still high. Admitted with BUN/sCr 73/4.81~08/30/2018, 75/4.84~08/31, 71/5.13~09/01 & 63/5.05 ~09/02/2018. sCr baseline normal 0.87~08/22/20110 Of note, Hco3 has been dropping 26 to 22 to 20. Has normal corrected calcium for low Albumin, but Uric Acid 9.1~09/01/2019. No Phosphorus. Renal US~08/30/2019 No HN. PMH: Percutaneous gastrostomy tube 08/26/2019 Squamous cell cancer of tongue. HTN GERD HomeMeds: Medication Instructions Recorded Confirmed Type Omeprazole CAP (NF) [Prilosec CAP* 20 mg PO DAILY PRN 01/14/13 08/30/19 History 20 MG] Losartan/Hydrochlorothiazide 1 tab PO QAM 09/11/18 08/30/19 History [Losartan-Hctz 50-12.5 mg Tab] Hospital Meds: Acetaminophen (Tylenol Tab*) 650 mg PO Q4H PRN PRN Reason: pain/fever Last Admin: 09/02/19 09:44 Dose: 650 mg Amlodipine Besylate (Norvasc Tab*) 5 mg PO DAILY [facility] Last Admin: 09/02/19 10:08 Dose: 5 mg Calcium Carbonate (Tums*) 500 mg PO Q4H PRN PRN Reason: HEARTBURN Last Admin: 09/02/19 07:28 Dose: 500 mg Heparin Sodium (Porcine) (Heparin Vial(*)) 5,000 units SUBCUT Q8H [facility] Last Admin: 09/02/19 05:48 Dose: Not Given Potassium Chloride/Sodium Chloride (Ns 0.9% W/ 20 Meq Kcl 1000 Ml*) 1,000 mls @ 150 mls/hr IV PER RATE [facility] Last Admin: 09/01/19 17:00 Dose: 150 mls/hr Ondansetron HCl (Zofran Inj*) 4 mg IV Q4H PRN PRN Reason: NAUSEA/VOMITING Oxycodone/Acetaminophen (Percocet 5/325 Tab*) 1 tab PO Q8H PRN PRN Reason: PAIN - MODERATE Pantoprazole Sodium (Protonix Tab*) 40 mg PO DAILY PRN PRN Reason: INDIGESTION Last Admin: 09/01/19 11:23 Dose: 40 mg Senna (Senokot 8.6 Mg Tab*) 1 tab PO BID [facility] Last Admin: 09/02/19 07:32 Dose: Not Given Zolpidem Tartrate (Ambien Tab*) 10 mg PO BEDTIME PRN PRN Reason: INSOMNIA Last Admin: 09/01/19 22:02 Dose: 10 mg Allergies: Penicillins Allergy (Intermediate, Verified 08/16/19 15:12) Swelling Of Face,Lips,& Throat happened when 17 years old Social History: Daily Alcohol, ex-smoking. No IVDA. but lives alone Family History: Negative for Dialysis, ESRD or Renal Transplant. Surgical History:PEG Tube 12-Point Review of System obtained: Constitutional: No fever no weight loss. No oral ulcers Eyes No blurry vision. No red eye CV: No SOB at rest or exertion, no chest pain no syncope or edema Respiratory: No SOB at rest no cough no wheezing G.I: no diarrhea no nausea no vomiting no pain no blood per rectum no burning no obstruction symptoms Skin no rash Neurology No seizures or neurologic deficit Endocrine no diabetes, no heat or cold intolerance Hem/Lymphatic no bleeding no lymph nodes swelling Immune/Allergy no allergic reactions Musculoskeletal: No arthritis, no swelling Psych no anxiety no depression no hallucination Objective: 10 Point multi system exam: Constitutional Alert Oriented x 3 HEENT: No Conjunctivitis Abdomen Soft Abdomen No Ascites Heart: NSR, No LE Edema, No murmur Lungs: Rt Crackles Extremities: No edema, no rash Skin no rash Neurology No deficit. CN intact Hem/Lymph: no palpable lymph nodes Musculoskeletal: No joint swelling Laboratory Reviewed Sodium 137 mmol/L (135-145) 09/02/19 06:00 Potassium 5.2 mmol/L (3.5-5.0) H 09/02/19 06:00 BUN 63 mg/dL (6-24) H 09/02/19 06:00 Creatinine 5.05 mg/dL (0.67-1.17) H 09/02/19 06:00 Calcium 8.4 mg/dL (8.6-10.3) L 09/02/19 06:00 Magnesium 2.0 mg/dL (1.9-2.7) 09/01/19 05:35 AST 21 U/L (13-39) 08/31/19 05:55 ALT 25 U/L (7-52) 08/31/19 05:55 Assessment and Plan: RADHA, baseline sCr normal. RADHA 2/2 to Cisplatin induced ATN, non-Oliguric, with possibly an element of pre- renal, on IVF. No evidence b that Amifostine is useful. Avoid IV Contrast and NSAIDs Check UA and Urine electrolytes & Phosphorus. I doubt TLS. Uric Acid can increase in AKIs, but he does not fulfill criteria of TLS, pending phosphorus level. Nevertheless, as Hco3 is dropping, Ok with Bicarb therapy. Na and K Ok. BP has been elevated 130-170 range, increase Amlodipine 10 mg qd Mild Fluid overload, with Rt crackles, decrease IVF 75 cc/Hr. He won't be a candidate for Cisplatin in the future. For future treatments, consider Carboplatin instead of Cisplatin Stop KCl in IVF May use PO Bicarbonate, start with PO 1300 mg TID Allopurinol 100 mg daily, isn't unreasonable, as he is less likely to have TLS, but Uric acid is elevated. He was informed about lab/radiology results & prognosis. All questions were answered. He was made part of the treatment plan. Case discussed with Karsten Carolina.
[2019-09-02 12:54] LABS: Phosphorus 3.4 mg/dL (2.5-5.0)
[2019-09-02] MEDS: Sodium Bicarbonate (ANTACID)* 650 MG TAB PO SCH ×2 (13:52→20:14)
[2019-09-02] MEDS: NS 0.9% 1000 ML** 1,000 ML IV SCH ×2 (13:52→23:52)
[2019-09-02] MEDS: oxyCODONE/Acetamin 5/325 MG* TAB PO PRN (18:18)
[2019-09-02 21:20] LABS: Urine Appearance Clear; Urine Bilirubin Negative (Negative); Urine Blood 1+ (Negative); Urine Color Straw; Urine Glucose Negative (Negative); Urine Ketones Negative (Negative); Urine Nitrite Negative (Negative); Urine Protein Negative (Negative); Urine Specific Gravity 1.009 (1.010-1.030); Urine Urobilinogen Negative (Negative)
[2019-09-02 21:25] LABS: Urine Bacteria Absent (Absent); Urine Red Blood Cell Trace(0-2/hpf) (Absent); Urine White Blood Cell Trace(0-5/hpf) (Absent)
[2019-09-02] MEDS: Ondansetron INJ* 2 MG/ML VIAL IV PRN (23:52)
[2019-09-03] MEDS: Heparin VIAL(*) 5000 UNITS/ML VIAL (FIVE THOUSAND) SUBCUT SCH ×3 (05:14→21:47)
[2019-09-03 05:43] LABS: BUN/Creatinine Ratio 12.1 (8-20); Calcium 8.6 mg/dL (8.6-10.3); EGFR African American 15.3 (>60); EGFR Non-African American 12.6 (>60)
[2019-09-03] MEDS: Ondansetron INJ* 2 MG/ML VIAL IV PRN ×3 (05:45→21:52)
[2019-09-03] MEDS: amLODIPine TAB* 5 MG PO SCH (07:59)
[2019-09-03] MEDS: Senna TAB 8.6 mg* TAB PO SCH (07:59)
[2019-09-03] MEDS: Sodium Bicarbonate (ANTACID)* 650 MG TAB PO SCH ×3 (07:59→21:58)
[2019-09-03] MEDS: Allopurinol TAB* 100 MG PO SCH (08:31)
[2019-09-03] MEDS: Pantoprazole TAB * 40 MG TAB PO PRN (08:31)
[2019-09-03] MEDS ORDERED: Senna TAB 8.6 mg* TAB PO PRN (09:17)
--- NOTE | 2019-09-03 10:21 | PN ---
Progress Note - Progress Note Date of Service: 09/03/19 SOAP: Subjective: [Developed some nausea yesterday afternoon and vomited once. He doesn't feel well this morning and avoided breakfast. Some discomfort over his tongue and back of his throat. Continues to urinate frequently.] Objective: [ Vital Signs: Temp Pulse Resp BP Pulse Ox 98.7 F 77 18 154/77 97 09/03/19 07:15 09/03/19 07:15 09/03/19 08:00 09/03/19 07:15 09/03/19 07:15 Acetaminophen (Tylenol Tab*) 650 mg PO Q4H PRN PRN Reason: pain/fever Last Admin: 09/02/19 16:04 Dose: 650 mg Allopurinol (Zyloprim Tab*) 100 mg PO DAILY [facility] Last Admin: 09/03/19 08:31 Dose: 100 mg Amlodipine Besylate (Norvasc Tab*) 5 mg PO DAILY [facility] Last Admin: 09/03/19 07:59 Dose: 5 mg Calcium Carbonate (Tums*) 500 mg PO Q4H PRN PRN Reason: HEARTBURN Last Admin: 09/02/19 07:28 Dose: 500 mg Gabapentin (Neurontin Cap(*)) 300 mg PO BID [facility] Heparin Sodium (Porcine) (Heparin Vial(*)) 5,000 units SUBCUT Q8H [facility] Last Admin: 09/03/19 05:14 Dose: 5,000 units Heparin Sodium (Porcine) (Heparin Flush Port (Ivad)) 5 ml FLUSH DAILY [facility]; Protocol Sodium Chloride (Ns 0.9% 1000 Ml) 1,000 mls @ 75 mls/hr IV PER RATE [facility] Last Admin: 09/02/19 13:52 Dose: 75 mls/hr Multi-Ingredient Mouthwash/Gargle (Magic Mouth Was-Seb/Maal/Lido*) 5 ml SWISH SPIT QID [facility] Ondansetron HCl (Zofran Inj*) 4 mg IV Q4H PRN PRN Reason: NAUSEA/VOMITING Last Admin: 09/03/19 05:45 Dose: 4 mg Oxycodone/Acetaminophen (Percocet 5/325 Tab*) 1 tab PO Q8H PRN PRN Reason: PAIN - MODERATE Last Admin: 09/02/19 18:18 Dose: 1 tab Pantoprazole Sodium (Protonix Tab*) 40 mg PO DAILY PRN PRN Reason: INDIGESTION Last Admin: 09/03/19 08:31 Dose: 40 mg Senna (Senokot 8.6 Mg Tab*) 1 tab PO BID PRN PRN Reason: CONSTIPATION Sodium Bicarbonate (Sodium Bicarbonate (Antacid)*) 1,300 mg PO TID [place] Last Admin: 09/03/19 07:59 Dose: 1,300 mg Zolpidem Tartrate (Ambien Tab*) 10 mg PO BEDTIME PRN PRN Reason: INSOMNIA Last Admin: 09/01/19 22:02 Dose: 10 mg Laboratory Results - last 24 hr 09/02/19 09/02/19 09/02/19 06:00 17:55 21:00 Sodium 137 Potassium 5.2 H Chloride 112 H Carbon Dioxide 20 L Anion Gap 5 BUN 63 H Creatinine 5.05 H Est GFR ( Amer) 14.4 Est GFR (Non-Af Amer) 11.9 BUN/Creatinine Ratio 12.5 Glucose 98 Calcium 8.4 L Phosphorus 3.4 Urine Color Cancelled Straw Urine Appearance Cancelled Clear Urine pH Cancelled 5.0 Ur Specific [place] Cancelled 1.009 L Urine Protein Cancelled Negative Urine Ketones Cancelled Negative Urine Blood Cancelled 1+ A Urine Nitrate Cancelled Negative Urine Bilirubin Cancelled Negative Urine Urobilinogen Cancelled Negative Ur Leukocyte Esterase Cancelled Negative Urine WBC (Auto) Cancelled Trace(0-5/hpf) Urine RBC (Auto) Cancelled Trace(0-2/hpf) Ur Squamous Epith Cells Cancelled Ur Transition Epith Cell Cancelled Ur Renal Epithelial Cell Cancelled Calcium Carbonate Cryst Cancelled Calcium Phosphate Cryst Cancelled Calcium Oxalate Crystal Cancelled Leucine Crystals Cancelled Cystine Crystals Cancelled Uric Acid Crystals Cancelled Triple Phos Crystals Cancelled Tyrosine Crystals Cancelled Amorphous Crystals Cancelled Urine Bacteria Cancelled Absent Cellular Casts Cancelled Epithelial Casts Cancelled Fatty Casts Cancelled Hyaline Casts Cancelled Granular Casts Cancelled Waxy Casts Cancelled Broad Casts Cancelled RBC Casts Cancelled WBC Casts Cancelled Urine Trichomonas Cancelled Urine Yeast Cancelled Urine Sperm Cancelled Ur Oval Fat Bodies Cancelled Urinalysis Comment Cancelled Urine Glucose Cancelled Negative Urine Ascorbic Acid Cancelled 09/03/19 05:15 Sodium 138 Potassium 5.0 Chloride 112 H Carbon Dioxide 20 L Anion Gap 6 BUN 58 H Creatinine 4.79 H Est GFR ( Amer) 15.3 Est GFR (Non-Af Amer) 12.6 BUN/Creatinine Ratio 12.1 Glucose 105 H Calcium 8.6 Phosphorus Urine Color Urine Appearance Urine pH Ur Specific [place] Urine Protein Urine Ketones Urine Blood Urine Nitrate Urine Bilirubin Urine Urobilinogen Ur Leukocyte Esterase Urine WBC (Auto) Urine RBC (Auto) Ur Squamous Epith Cells Ur Transition Epith Cell Ur Renal Epithelial Cell Calcium Carbonate Cryst Calcium Phosphate Cryst Calcium Oxalate Crystal Leucine Crystals Cystine Crystals Uric Acid Crystals Triple Phos Crystals Tyrosine Crystals Amorphous Crystals Urine Bacteria Cellular Casts Epithelial Casts Fatty Casts Hyaline Casts Granular Casts Waxy Casts Broad Casts RBC Casts WBC Casts Urine Trichomonas Urine Yeast Urine Sperm Ur Oval Fat Bodies Urinalysis Comment Urine Glucose Urine Ascorbic Acid Exam: Gen: Mildly ill appearing, but in NAD HEENT: mild posterior pharynx mucositis CV: RRR, no m/r/g Resp: CTA, no w/c/r Abd: soft and nonTTP, PEG tube in place Ext: no edema] Assessment: [This is a 58 yo male with 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 Hospitalized for supportive care with now some small improvement in CrCl with continued good urine output.] Plan: [1. RADHA secondary to cisplatin, grade 3 - good urine output, minimal peripheral edema - decreased IVF to 75 ml/h - noted elevated uric acid to 9.1 - started low dose allopurinol at 100 mg daily - nephrology consultation appreciated - cont I/O monitoring 2. Head/neck CA - cont RT - plan for additional chemotherapy will depend on recovery from this acute episode - start gabapentin per radiation recommendations, but at a modified dose due to severe renal impairment - start magic mouth wash and baking soda/salt water rinses for mucositis support - consider nutritional support via PEG tube if oral intake remains low - requested nutrition consultation 3. HTN - ARB/diuretic held at admission for RADHA - noted moderate HTN - started amlodipine 5 mg daily Dispo: cont inpatient stay. If Cr improves further tomorrow anticipate dc home with close outpt monitoring/support.]
--- NOTE | 2019-09-03 10:59 | PN ---
Progress Note - Progress Note Date of Service: 09/03/19 Note: Inpatient Nephrology FU Note: Performed by Dr. Edil Arevalo, [facility] Nephrology 09/03/2019 58 YO WM SCC of Tongue s/p ChemoRx & XRT Non-oliguric RADHA secondary to Cisplatin, on IVF NS 75 ml/h. sCr baseline normal BUN/sCr trend 58/4.79~09/03 63/5.05~09/02 71/5.13~09/01 75/4.84~08/31 73/4.81~08/30/2019 Losartan/HCTZ, on hold. BP improving on Amlodipine, today 130/84 Volume status no edema Had some N/V last night. Active Medications: Acetaminophen (Tylenol Tab*) 650 mg PO Q4H PRN PRN Reason: pain/fever Last Admin: 09/02/19 16:04 Dose: 650 mg Allopurinol (Zyloprim Tab*) 100 mg PO DAILY [facility] Last Admin: 09/03/19 08:31 Dose: 100 mg Amlodipine Besylate (Norvasc Tab*) 5 mg PO DAILY [facility] Last Admin: 09/03/19 07:59 Dose: 5 mg Calcium Carbonate (Tums*) 500 mg PO Q4H PRN PRN Reason: HEARTBURN Last Admin: 09/02/19 07:28 Dose: 500 mg Gabapentin (Neurontin Cap(*)) 100 mg PO BID [facility] Heparin Sodium (Porcine) (Heparin Vial(*)) 5,000 units SUBCUT Q8H [facility] Last Admin: 09/03/19 05:14 Dose: 5,000 units Heparin Sodium (Porcine) (Heparin Flush Port (Ivad)) 5 ml FLUSH DAILY [facility]; Protocol Sodium Chloride (Ns 0.9% 1000 Ml) 1,000 mls @ 75 mls/hr IV PER RATE [facility] Last Admin: 09/02/19 13:52 Dose: 75 mls/hr Multi-Ingredient Mouthwash/Gargle (Magic Mouth Was-Seb/Maal/Lido*) 5 ml SWISH SPIT QID [facility] Ondansetron HCl (Zofran Inj*) 4 mg IV Q4H PRN PRN Reason: NAUSEA/VOMITING Last Admin: 09/03/19 05:45 Dose: 4 mg Oxycodone/Acetaminophen (Percocet 5/325 Tab*) 1 tab PO Q8H PRN PRN Reason: PAIN - MODERATE Last Admin: 09/02/19 18:18 Dose: 1 tab Pantoprazole Sodium (Protonix Tab*) 40 mg PO DAILY PRN PRN Reason: INDIGESTION Last Admin: 09/03/19 08:31 Dose: 40 mg Senna (Senokot 8.6 Mg Tab*) 1 tab PO BID PRN PRN Reason: CONSTIPATION Sodium Bicarbonate (Sodium Bicarbonate (Antacid)*) 1,300 mg PO TID [place] Last Admin: 09/03/19 07:59 Dose: 1,300 mg Zolpidem Tartrate (Ambien Tab*) 10 mg PO BEDTIME PRN PRN Reason: INSOMNIA Last Admin: 09/01/19 22:02 Dose: 10 mg Objective: Temp Pulse Resp BP Pulse Ox 98.7 F 77 18 154/77 97 09/03/19 07:15 09/03/19 07:15 09/03/19 08:00 09/03/19 07:15 09/03/19 07:15 10 Point multi system exam: Constitutional Alert Oriented x 3 HEENT: No Conjunctivitis Abdomen Soft Abdomen No Ascites Heart: NSR, No LE Edema, No murmur Lungs: Rt Crackles Extremities: No edema, no rash Skin no rash Neurology No deficit. CN intact Hem/Lymph: no palpable lymph nodes Musculoskeletal: No joint swelling Laboratory Reviewed Sodium 138 mmol/L (135-145) 09/03/19 05:15 Potassium 5.0 mmol/L (3.5-5.0) 09/03/19 05:15 BUN 58 mg/dL (6-24) H 09/03/19 05:15 Creatinine 4.79 mg/dL (0.67-1.17) H 09/03/19 05:15 Calcium 8.6 mg/dL (8.6-10.3) 09/03/19 05:15 Magnesium 2.0 mg/dL (1.9-2.7) 09/01/19 05:35 AST 21 U/L (13-39) 08/31/19 05:55 ALT 25 U/L (7-52) 08/31/19 05:55 Assessment and Plan: Baseline sCr normal. RADHA 2/2 to Cisplatin induced ATN, non-Oliguric BUN/sCr better, on IVF further 75 cc/Hr Possible TLS, on Allopurinol Hco3 stable Na and K Ok. Off of KCl BP Ok No indication for HD Avoid Contrast, NSAIDs or Nephrotoxic ChemoRx
[2019-09-03] MEDS: Magic Mouth Was-BEN/MAAL/LIDO SWISH SPIT SCH ×3 (14:22→22:00)
[2019-09-03 15:56] LABS: Troponin I 0.07 ng/mL (<0.03)
[2019-09-03 18:53] LABS: Troponin I 0.07 ng/mL (<0.03)
[2019-09-03] MEDS ORDERED: Gabapentin CAP(*) 300 MG PO SCH (21:00)
[2019-09-03] MEDS: Gabapentin CAP(*) 100 MG PO SCH (21:49)
[2019-09-03] MEDS ORDERED: amLODIPine TAB* 5 MG PO ONE (22:00)
[2019-09-03] MEDS: NS 0.9% 1000 ML** 1,000 ML IV SCH (23:39)
[2019-09-04] MEDS: oxyCODONE/Acetamin 5/325 MG* TAB PO PRN (06:23)
[2019-09-04] MEDS: Heparin VIAL(*) 5000 UNITS/ML VIAL (FIVE THOUSAND) SUBCUT SCH ×3 (06:24→21:15)
[2019-09-04 06:59] LABS: Troponin I 0.05 ng/mL (<0.03)
[2019-09-04 08:33] LABS: ALT 12 U/L (7-52); AST 15 U/L (13-39); Albumin/Globulin Ratio 1.1 (1-3); Alkaline Phosphatase 54 U/L (34-104); Anion Gap 9 mmol/L (2-11); BUN/Creatinine Ratio 11.3 (8-20); Blood Urea Nitrogen 53 mg/dL (6-24); CO2 Carbon Dioxide 20 mmol/L (22-32); Calcium 8.6 mg/dL (8.6-10.3); Chloride 110 mmol/L (101-111); EGFR African American 15.7 (>60); Globulin 2.7 g/dL (2-4); Glucose 99 mg/dL (70-100); Potassium 4.6 mmol/L (3.5-5.0); Sodium 139 mmol/L (135-145); Total Protein 5.7 g/dL (6.4-8.9)
[2019-09-04] MEDS: Magic Mouth Was-BEN/MAAL/LIDO SWISH SPIT SCH ×4 (08:34→21:15)
[2019-09-04] MEDS: Allopurinol TAB* 100 MG PO SCH (08:34)
[2019-09-04] MEDS: amLODIPine TAB* 5 MG PO SCH (08:34)
[2019-09-04] MEDS: Sodium Bicarbonate (ANTACID)* 650 MG TAB PO SCH ×3 (08:34→21:15)
[2019-09-04] MEDS: Ondansetron INJ* 2 MG/ML VIAL IV PRN ×3 (08:42→21:25)
[2019-09-04] MEDS: Gabapentin CAP(*) 100 MG PO SCH ×2 (08:42→21:15)
--- NOTE | 2019-09-04 10:36 | PN ---
Progress Note - Progress Note Date of Service: 09/04/19 SOAP: Subjective: patient felt nauseous this am so did not go for RT. He got up to go to the bathroom and upon returning to his bed developed recurrent substernal chest pain and shortness of breath, which he describes as heartburn like. chest pain improved with rest. SOB still persists mildly. Also bilateral mild LE edema R> L. just does not feel right. Objective: Vital Signs Temp Pulse Resp BP Pulse Ox 98.6 F 81 18 139/68 94 09/04/19 07:15 09/04/19 07:15 09/04/19 09:02 09/04/19 07:15 09/04/19 07:15 lying on side in nad perr eomi op dry CTA bl s1 s2 nl soft nt clean peg 1+ RLE edema, trace left A+O x 3, nonfocal neurological exam Laboratory Results - last 24 hr 09/03/19 09/03/19 09/04/19 15:00 18:00 06:10 Sodium 139 Potassium 4.6 Chloride 110 Carbon Dioxide 20 L Anion Gap 9 BUN 53 H Creatinine 4.67 H Est GFR ( Amer) 15.7 Est GFR (Non-Af Amer) 13.0 BUN/Creatinine Ratio 11.3 Glucose 99 Calcium 8.6 Total Bilirubin 0.50 AST 15 ALT 12 Alkaline Phosphatase 54 Troponin I 0.07 H* 0.07 H* 0.05 H* Total Protein 5.7 L Albumin 3.0 L Globulin 2.7 Albumin/Globulin Ratio 1.1 Acetaminophen (Tylenol Tab*) 650 mg PO Q4H PRN PRN Reason: pain/fever Last Admin: 09/02/19 16:04 Dose: 650 mg Allopurinol (Zyloprim Tab*) 100 mg PO DAILY [facility] Last Admin: 09/04/19 08:34 Dose: 100 mg Amlodipine Besylate (Norvasc Tab*) 5 mg PO DAILY [facility] Last Admin: 09/04/19 08:34 Dose: 5 mg Calcium Carbonate (Tums*) 500 mg PO Q4H PRN PRN Reason: HEARTBURN Last Admin: 09/02/19 07:28 Dose: 500 mg Gabapentin (Neurontin Cap(*)) 100 mg PO BID [facility] Last Admin: 09/04/19 08:42 Dose: 100 mg Heparin Sodium (Porcine) (Heparin Vial(*)) 5,000 units SUBCUT Q8H [facility] Last Admin: 09/04/19 06:24 Dose: 5,000 units Heparin Sodium (Porcine) (Heparin Flush Port (Ivad)) 5 ml FLUSH DAILY [facility]; Protocol Last Admin: 09/04/19 08:52 Dose: Not Given Sodium Chloride (Ns 0.9% 1000 Ml) 1,000 mls @ 75 mls/hr IV PER RATE [facility] Last Admin: 09/03/19 23:39 Dose: 75 mls/hr Multi-Ingredient Mouthwash/Gargle (Magic Mouth Was-Seb/Maal/Lido*) 5 ml SWISH SPIT QID [facility] Last Admin: 09/04/19 08:34 Dose: 5 ml Ondansetron HCl (Zofran Inj*) 4 mg IV Q4H PRN PRN Reason: NAUSEA/VOMITING Last Admin: 09/04/19 08:42 Dose: 4 mg Oxycodone/Acetaminophen (Percocet 5/325 Tab*) 1 tab PO Q8H PRN PRN Reason: PAIN - MODERATE Last Admin: 09/04/19 06:23 Dose: 1 tab Pantoprazole Sodium (Protonix Tab*) 40 mg PO DAILY PRN PRN Reason: INDIGESTION Last Admin: 09/03/19 08:31 Dose: 40 mg Senna (Senokot 8.6 Mg Tab*) 1 tab PO BID PRN PRN Reason: CONSTIPATION Last Admin: 09/04/19 08:37 Dose: 1 tab Sodium Bicarbonate (Sodium Bicarbonate (Antacid)*) 1,300 mg PO TID [facility] Last Admin: 09/04/19 08:34 Dose: 1,300 mg Zolpidem Tartrate (Ambien Tab*) 10 mg PO BEDTIME PRN PRN Reason: INSOMNIA Last Admin: 09/01/19 22:02 Dose: 10 mg Assessment: 58 yo male with 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 Hospitalized for supportive care with now some small improvement in CrCl with continued good urine output. Unfortunately he has now developed SOB and chest pain with RLE swelling concerning for PE/DVT. Plan: 1. RADHA secondary to cisplatin, grade 3 - good urine output, minimal peripheral edema - stop fluids given SOB until above tellez for PE - noted elevated uric acid to 9.1 - started low dose allopurinol at 100 mg daily - nephrology consultation appreciated - cont I/O monitoring 2. Head/neck CA - cont RT - plan for additional chemotherapy will depend on recovery from this acute episode - start gabapentin per radiation recommendations, but at a modified dose due to severe renal impairment - start magic mouth wash and baking soda/salt water rinses for mucositis support - consider nutritional support via PEG tube if oral intake remains low - requested nutrition consultation 3. HTN - ARB/diuretic held at admission for RADHA - noted moderate HTN - started amlodipine 5 mg daily 4. SBO/CP/Swelling: stat V/Q scan and RLE doppler. If PE will need heparin drip -repeat EKG and troponin, if no PE will likely need cards evaluation. full code
[2019-09-04 11:21] LABS: Troponin I 0.05 ng/mL (<0.03)
[2019-09-04] MEDS ORDERED: amLODIPine TAB* 5 MG PO ONE (16:07)
[2019-09-04] MEDS: Polyethylene Glycol 3350* 17 GM PACKET PO SCH (16:29)
[2019-09-04] MEDS: Aspirin TAB* 325 MG PO SCH (16:31)
[2019-09-04] MEDS: Metoprolol Succinate XL TAB* 25 MG PO SCH (16:31)
[2019-09-05] MEDS: Heparin VIAL(*) 5000 UNITS/ML VIAL (FIVE THOUSAND) SUBCUT SCH ×3 (06:21→21:17)
[2019-09-05 06:29] LABS: ABS Basophils 0.1 10^3/ul (0-0.2); ABS Eosinophils 0.2 10^3/ul (0-0.6); ABS Lymphocytes 0.4 10^3/ul (1.0-4.8); ABS Monocytes 0.7 10^3/ul (0-0.8); Eosinophil % 2.9 %; Hematocrit 30 % (42-52); Hemoglobin 10.7 g/dL (14.0-18.0); Lymphocyte % 7.8 %; Mean Corpuscular HGB Conc 36 g/dL (31-36); Mean Corpuscular Hemoglobin 33 pg (27-31); Mean Corpuscular Volume 92 fL (80-94); Mean Platelet Volume 7.5 fL (7.4-10.4); Platelet Count 177 10^3/uL (150-450); Red Blood Count 3.28 10^6 /uL (4.18-5.48); Red Cell Distribution Width 12 % (10-15); White Blood Count 5.4 10^3/uL (3.5-10.8)
[2019-09-05 06:44] LABS: ALT 12 U/L (7-52); AST 15 U/L (13-39); Albumin 3.1 g/dL (3.2-5.2); Albumin/Globulin Ratio 1.2 (1-3); Alkaline Phosphatase 52 U/L (34-104); Anion Gap 8 mmol/L (2-11); BUN/Creatinine Ratio 11.5 (8-20); Blood Urea Nitrogen 53 mg/dL (6-24); CO2 Carbon Dioxide 24 mmol/L (22-32); Calcium 8.5 mg/dL (8.6-10.3); Chloride 107 mmol/L (101-111); EGFR Non-African American 13.2 (>60); Globulin 2.6 g/dL (2-4); Glucose 89 mg/dL (70-100); Potassium 4.5 mmol/L (3.5-5.0); Sodium 139 mmol/L (135-145); Total Protein 5.7 g/dL (6.4-8.9)
--- NOTE | 2019-09-05 08:32 | PN ---
Progress Note - Progress Note Date of Service: 09/05/19 SOAP: Subjective: []Feeling OK this AM. Stomach has been a little off, however zofran is helping. Last BM 2 days ago, passing gas, and doesn't feel bloated. No further chest pain or pressure. Does not feel SOB. Denies palpitations and flutters. Throat hurts, but feels it is managed OK and denies need for further pain meds right now. Sister (Flavio, who is an [employer]) is at bedside, both asking appropriate questions. Medications: Acetaminophen (Tylenol Tab*) 650 mg PO Q4H PRN PRN Reason: pain/fever Last Admin: 09/02/19 16:04 Dose: 650 mg Allopurinol (Zyloprim Tab*) 100 mg PO DAILY [facility] Last Admin: 09/04/19 08:34 Dose: 100 mg Amlodipine Besylate (Norvasc Tab*) 10 mg PO DAILY [facility] Aspirin (Aspirin Tab*) 325 mg PO DAILY [facility] Last Admin: 09/04/19 16:31 Dose: 325 mg Calcium Carbonate (Tums*) 500 mg PO Q4H PRN PRN Reason: HEARTBURN Last Admin: 09/02/19 07:28 Dose: 500 mg Gabapentin (Neurontin Cap(*)) 100 mg PO BID [facility] Last Admin: 09/04/19 21:15 Dose: 100 mg Heparin Sodium (Porcine) (Heparin Vial(*)) 5,000 units SUBCUT Q8H [facility] Last Admin: 09/05/19 06:21 Dose: 5,000 units Heparin Sodium (Porcine) (Heparin Flush Port (Ivad)) 5 ml FLUSH DAILY [facility]; Protocol Last Admin: 09/04/19 08:52 Dose: Not Given Metoprolol Succinate (Toprol Xl Tab*) 25 mg PO DAILY [facility] Last Admin: 09/04/19 16:31 Dose: 25 mg Multi-Ingredient Mouthwash/Gargle (Magic Mouth Was-Seb/Maal/Lido*) 5 ml SWISH SPIT QID [facility] Last Admin: 09/04/19 21:15 Dose: 5 ml Ondansetron HCl (Zofran Inj*) 4 mg IV Q4H PRN PRN Reason: NAUSEA/VOMITING Last Admin: 09/04/19 21:25 Dose: 4 mg Oxycodone/Acetaminophen (Percocet 5/325 Tab*) 1 tab PO Q8H PRN PRN Reason: PAIN - MODERATE Last Admin: 09/04/19 06:23 Dose: 1 tab Pantoprazole Sodium (Protonix Tab*) 40 mg PO DAILY PRN PRN Reason: INDIGESTION Last Admin: 09/03/19 08:31 Dose: 40 mg Polyethylene Glycol/Electrolytes (Miralax*) 17 gm PO DAILY [facility] Last Admin: 09/04/19 16:29 Dose: 17 gm Senna (Senokot 8.6 Mg Tab*) 1 tab PO BID PRN PRN Reason: CONSTIPATION Last Admin: 09/04/19 08:37 Dose: 1 tab Sodium Bicarbonate (Sodium Bicarbonate (Antacid)*) 1,300 mg PO TID [place] Last Admin: 09/04/19 21:15 Dose: 1,300 mg Zolpidem Tartrate (Ambien Tab*) 10 mg PO BEDTIME PRN PRN Reason: INSOMNIA Last Admin: 09/01/19 22:02 Dose: 10 mg Objective: [] Vital Signs Temp Pulse Resp BP Pulse Ox 99 F 77 20 168/73 94 09/05/19 03:15 09/05/19 03:15 09/05/19 03:15 09/05/19 03:15 09/05/19 03:15 A&Ox3, EOMI, communicating clearing in no acute distress. Neuro grossly non- focal. HRR, S1S2, no murmur noted, tele SR rate 80-90s this AM LS clear bilat. throughout without wheeze or rhonchi +BS, round, soft, and non-tender Laboratory Results - last 24 hr 09/05/19 09/05/19 06:15 06:15 WBC 5.4 RBC 3.28 L Hgb 10.7 L Hct 30 L MCV 92 MCH 33 H MCHC 36 RDW 12 Plt Count 177 MPV 7.5 Neut % (Auto) 73.6 Lymph % (Auto) 7.8 [place] % (Auto) 13.7 Eos % (Auto) 2.9 Baso % (Auto) 2.0 Absolute Neuts (auto) 4.0 Absolute Lymphs (auto) 0.4 L Absolute Monos (auto) 0.7 Absolute Eos (auto) 0.2 Absolute Basos (auto) 0.1 Absolute Nucleated RBC 0.0 Nucleated RBC % 0.0 Sodium 139 Potassium 4.5 Chloride 107 Carbon Dioxide 24 Anion Gap 8 BUN 53 H Creatinine 4.61 H Est GFR ( Amer) 16.0 Est GFR (Non-Af Amer) 13.2 BUN/Creatinine Ratio 11.5 Glucose 89 Calcium 8.5 L Total Bilirubin 0.50 AST 15 ALT 12 Alkaline Phosphatase 52 Troponin I B-Natriuretic Peptide Total Protein 5.7 L Albumin 3.1 L Globulin 2.6 Albumin/Globulin Ratio 1.2 Negative doppler Negative VQ scan Assessment: []58 yo male with 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 Hospitalized for supportive care with slow improvement in CrCl with continued good urine output. Course now complicated by recurrent chest pain with work-up thus far negative for DVT, PE, and STEMI. Cardiac consult and echo pending today. At this time I suspect we will pursue medical management in which case he could be d/c'd home with plan for daily hydration and labs until kidney function normalizes/stabilizes. Plan: []1. RADHA secondary to cisplatin, grade 3 - good urine output, minimal peripheral edema - resume fluids, echo pending to determine tolerance of boluses daily - elevated uric acid to 9.1 - now on low dose allopurinol at 100 mg daily - nephrology consultation appreciated - cont I/O monitoring 2. Head/neck CA - cont RT - plan for additional chemotherapy dependent on recovery from this acute episode (C2 due 09/12) - gabapentin per radiation recommendations, modified dose due to severe renal impairment - magic mouth wash and baking soda/salt water rinses for mucositis support - reviewed need for PEG tube nutrition as RT cont.'s - appreciate unit coordinator cont.'d support 3. HTN - ARB/diuretic held at admission for RADHA - cont. HTN - now on calcium channel luis and beta luis 4. CP: cardiac consult and echo today full code Dispo: as above potential for d/c home this afternoon or tomorrow AM dependent on cardiology recommendations
--- NOTE | 2019-09-05 08:42 | ECHO ---
*[facility]* [place] [address] Fax #: [phone] Transthoracic Echocardiogram Patient: Bob Pratt : 1960 Study Date: 09/05/2019 Age: 58 Gender: M HR: 62 bpm Height: 67 in /170.2 cm BSA: 2.01 m^2 Weight: 196.6 lb /89.4 kg BMI: 30.9 kg/m^2 *Events Assistant: Madhuri Brooks [facility] *Referring Physician: * Verenice Walker *Reading Physician: * Lance Nur MD Indications: Chest Pain, unspecified. History: Dyspnea. Risk factors: Hypertension. Conclusions Summary: - Left ventricle: The cavity size is normal. Wall thickness is mildly increased. Systolic function is normal. The estimated ejection fraction is 60-65%. Features are consistent with a pseudonormal left ventricular filling pattern, with concomitant abnormal relaxation and increased filling pressure (grade 2 diastolic dysfunction). - Right ventricle: The cavity size is normal. Wall thickness is mildly increased. - Left atrium: The atrium is mildly dilated. - Pericardium, extracardiac: A trace pericardial effusion is identified. Study data: Transthoracic echocardiogram. Procedure: Transthoracic echocardiography was performed. Image quality was fair. Complete 2D, spectral Doppler, and color flow Doppler. Location: Bedside. Patient status: Inpatient. Patient room number: 408. No prior study is available for comparison. Rhythm: Normal sinus rhythm. Findings Left ventricle: The cavity size is normal. Wall thickness is mildly increased. Systolic function is normal. The estimated ejection fraction is 60-65%. Wall motion is normal; there are no regional wall motion abnormalities. Features are consistent with a pseudonormal left ventricular filling pattern, with concomitant abnormal relaxation and increased filling pressure (grade 2 diastolic dysfunction). Right ventricle: The cavity size is normal. Wall thickness is mildly increased. Systolic function is normal. Left atrium: The atrium is mildly dilated. Right atrium: The atrium is normal in size. Mitral valve: The leaflets are normal thickness. There is no evidence of stenosis. There is no significant regurgitation. Aortic valve: The valve is trileaflet. The leaflets are normal thickness. There is no evidence of stenosis. There is no significant regurgitation. Tricuspid valve: The leaflets are normal thickness. There is no evidence of stenosis. There is trace regurgitation. Pulmonic valve: Not well visualized. There is no significant regurgitation. Pericardium: A prominent pericardial fat pad is present. A trace pericardial effusion is identified. Pulmonary arteries: Not well visualized. Systolic pressure can not be accurately estimated. Systemic veins: Inferior vena cava: The vessel is dilated. There is (>= 50%) respiratory change in the IVC dimension. Measurements Left ventricle Value Ref Aortic valve Value Ref KATIE, LAX 4.8 cm 4.2 - 5.8 Je diam, ED 2.3 cm ---- ESD, LAX 3.3 cm 2.5 - 4.0 Peak v, S 1.4 m/sec ---- FS, LAX 31 % 25 - 43 VTI, S 31.1 cm ---- PW, ED, LAX (H) 1.4 cm 0.6 - 1.0 Mean grad, S 5.0 mm Hg ---- E', lat je, TDI (L) 5.7 cm/sec >=10.0 Peak grad, S 8.0 mm Hg ---- E/e', lat je, 19 TDI Mitral valve Value Ref E', med je, TDI 9.3 cm/sec >=7.0 Peak E 1.09 m/sec ---- E/e', med je, 12 Peak A 0.83 m/sec -- -- TDI Decel time 172 ms ---- E', avg, TDI 7.5 cm/sec Peak grad, D 4.8 mm Hg -- -- E/e', avg, TDI (H) 15 <=14 Peak E/A ratio 1.3 ---- LVOT Value Ref Pulmonic valve Value Ref Peak latoya, S 1.21 m/sec Peak v, S 0.8 m/sec ---- Peak grad, S 6 mm Hg Peak grad, S 3.0 mm Hg ---- Mean grad, S 3 mm Hg Aortic root Value Ref Ventricular septum Value Ref Root diam 3.3 cm <4.1 IVS, ED (H) 1.4 cm 0.6 - 1.0 Root max diam, ED 3.3 cm <4.1 Right ventricle Value Ref Ascending aorta Value Ref AW thickness, ED 0.5 cm 0.1 - 0.5 AAo AP diam, S 3.4 cm ---- KATIE, LAX 2.5 cm AAo AP diam/bsa, S 1.7 cm/m^2 ---- KATIE minor ax, A4C 2.0 cm 1.9 - 3.5 mid Decending aorta Value Ref Anna peak latoya 0.62 m/sec ---- Left atrium Value Ref AP dim, ES (H) 4.70 cm 3.00 - Inferior vena cava Value Ref 4.00 Diam 2.3 cm ---- ML dim, A4C 4.5 cm SI dim, A4C 6.0 cm Pulmonary veins Value Ref Vol/bsa, ES, A/L (H) 35 ml/m^2 16 - 34 Peak v, S 0.57 m/sec ---- Peak v, D 0.4 m/sec ---- Right atrium Value Ref Peak S/D ratio 1.4 ---- SI dim, ES 4.9 cm 3.4 - 5.3 A rev duration 103 ms ---- ML dim, ES, A4C 3.7 cm 2.6 - 4.4 Estimated RAP 8 mm Hg Legend: (L) and (H) kin values outside specified reference range. Prepared and electronically signed by Lance Nur MD 09/05/2019 08:41
[2019-09-05] MEDS: Ondansetron INJ* 2 MG/ML VIAL IV PRN (08:50)
[2019-09-05] MEDS: NS 0.9% 1000 ML** 1,000 ML IV SCH (10:12)
[2019-09-05] MEDS: Aspirin TAB* 325 MG PO SCH (10:16)
[2019-09-05] MEDS: Polyethylene Glycol 3350* 17 GM PACKET PO SCH (10:16)
[2019-09-05] MEDS: Sodium Bicarbonate (ANTACID)* 650 MG TAB PO SCH ×3 (10:16→21:16)
[2019-09-05] MEDS: Metoprolol Succinate XL TAB* 25 MG PO SCH (10:16)
[2019-09-05] MEDS: Gabapentin CAP(*) 100 MG PO SCH ×2 (10:16→21:17)
[2019-09-05] MEDS: amLODIPine TAB* 5 MG PO SCH (10:17)
[2019-09-05] MEDS: Allopurinol TAB* 100 MG PO SCH (10:17)
[2019-09-05] MEDS: Magic Mouth Was-BEN/MAAL/LIDO SWISH SPIT SCH ×4 (10:17→21:17)
--- NOTE | 2019-09-05 15:52 | PN ---
Progress Note - Progress Note Date of Service: 09/05/19 Note: Inpatient Nephrology FU Note: Performed by Dr. Edil Arevalo, [facility] Nephrology 09/05/2019 58 YO WM SCC of Tongue s/p ChemoRx & XRT Non-oliguric RADHA secondary to Cisplatin, on IVF NS sCr baseline normal Doing well, eating and drinking. No overnight events BUN/sCr trend 53/4.61~09/05 53/4.67~09/04 58/4.79~09/03 63/5.05~09/02 71/5.13~09/01 75/4.84~08/31 73/4.81~08/30/2019 Active Medications: Acetaminophen (Tylenol Tab*) 650 mg PO Q4H PRN PRN Reason: pain/fever Last Admin: 09/02/19 16:04 Dose: 650 mg Allopurinol (Zyloprim Tab*) 100 mg PO DAILY [facility] Last Admin: 09/05/19 10:17 Dose: 100 mg Amlodipine Besylate (Norvasc Tab*) 10 mg PO DAILY [facility] Last Admin: 09/05/19 10:17 Dose: 10 mg Aspirin (Aspirin 81 Mg Chew Tab*) 81 mg PO DAILY [facility] Calcium Carbonate (Tums*) 500 mg PO Q4H PRN PRN Reason: HEARTBURN Last Admin: 09/02/19 07:28 Dose: 500 mg Gabapentin (Neurontin Cap(*)) 100 mg PO BID [facility] Last Admin: 09/05/19 10:16 Dose: 100 mg Heparin Sodium (Porcine) (Heparin Vial(*)) 5,000 units SUBCUT Q8H [facility] Last Admin: 09/05/19 14:04 Dose: 5,000 units Heparin Sodium (Porcine) (Heparin Flush Port (Ivad)) 5 ml FLUSH DAILY [facility]; Protocol Last Admin: 09/05/19 10:11 Dose: Not Given Sodium Chloride (Ns 0.9% 1000 Ml) 1,000 mls @ 75 mls/hr IV PER RATE [facility] Last Admin: 09/05/19 10:12 Dose: 75 mls/hr Metoprolol Succinate (Toprol Xl Tab*) 25 mg PO DAILY [facility] Last Admin: 09/05/19 10:16 Dose: 25 mg Multi-Ingredient Mouthwash/Gargle (Magic Mouth Was-Seb/Maal/Lido*) 5 ml SWISH SPIT QID [facility] Last Admin: 09/05/19 14:01 Dose: 5 ml Ondansetron HCl (Zofran Inj*) 4 mg IV Q4H PRN PRN Reason: NAUSEA/VOMITING Last Admin: 09/05/19 08:50 Dose: 4 mg Oxycodone/Acetaminophen (Percocet 5/325 Tab*) 1 tab PO Q8H PRN PRN Reason: PAIN - MODERATE Last Admin: 09/04/19 06:23 Dose: 1 tab Pantoprazole Sodium (Protonix Tab*) 40 mg PO DAILY PRN PRN Reason: INDIGESTION Last Admin: 09/03/19 08:31 Dose: 40 mg Polyethylene Glycol/Electrolytes (Miralax*) 17 gm PO DAILY [facility] Last Admin: 09/05/19 10:16 Dose: 17 gm Senna (Senokot 8.6 Mg Tab*) 1 tab PO BID PRN PRN Reason: CONSTIPATION Last Admin: 09/04/19 08:37 Dose: 1 tab Sodium Bicarbonate (Sodium Bicarbonate (Antacid)*) 1,300 mg PO TID [facility] Last Admin: 09/05/19 14:01 Dose: 1,300 mg Zolpidem Tartrate (Ambien Tab*) 10 mg PO BEDTIME PRN PRN Reason: INSOMNIA Last Admin: 09/01/19 22:02 Dose: 10 mg Objective: .Vital Signs: Temp Pulse Resp BP Pulse Ox 98.9 F 75 18 154/69 93 09/05/19 11:15 09/05/19 11:15 09/05/19 14:02 09/05/19 11:15 09/05/19 11:15 .Heart: Regular rate and rhythm No murmur or gallop LE Edema No Rub .Lungs: Clear to auscultation and percussion No wheezes or Crackles .Extremities: No LE edema Laboratory Reviewed Sodium 139 mmol/L (135-145) 09/05/19 06:15 Potassium 4.5 mmol/L (3.5-5.0) 09/05/19 06:15 BUN 53 mg/dL (6-24) H 09/05/19 06:15 Creatinine 4.61 mg/dL (0.67-1.17) H 09/05/19 06:15 Calcium 8.5 mg/dL (8.6-10.3) L 09/05/19 06:15 Magnesium 2.0 mg/dL (1.9-2.7) 09/01/19 05:35 AST 15 U/L (13-39) 09/05/19 06:15 ALT 12 U/L (7-52) 09/05/19 06:15 Assessment and Plan: Baseline sCr was normal. RADHA 2/2 to Cisplatin induced ATN, non-Oliguric. Possible TLS, on Allopurinol Follow Uric Acid BUN/sCr better May stop IVF, fearing fluid overload Electrolytes Ok BP Ok No indication for HD Avoid Contrast, NSAIDs or Nephrotoxic ChemoRx Needs f/u in renal clinic in 1 week
[2019-09-05 20:30] LABS: Troponin I 0.04 ng/mL (<0.03)
--- NOTE | 2019-09-05 22:42 | CONS ---
CC: Dr. Walker; Dr. Nur * CARDIOLOGY CONSULTATION: DATE OF CONSULT: 09/05/19 REASON FOR EVALUATION: Chest pain. HISTORY OF PRESENT ILLNESS: This is a very pleasant 58-year-old gentleman, who recently was diagnosed with head and neck cancer and was started on cisplatin and radiation. He developed acute renal insufficiency attributed to the cisplatin and was admitted for hydration on 08/30/19. He has been hydrated. He said that 2 days ago, he developed an episode of chest pain, cold sweats, lightheadedness, shortness of breath while standing in the shower. He says that he is not sure if there was a gastric indigestion associated with it. He thought at first it was indigestion. It lasted about 10 minutes and resolved after he sat and lied down. He denied any racing heartbeat with that. He said he had a mild episode yesterday morning just sitting and doing nothing. Because of symptoms, Cardiology consultation was requested. Of note, his labs have included troponins from 09/03/19 of 0.07, 0.07 and on 09/04/19, 0.05, 0.05. His EKG showed left anterior hemiblock, no acute changes. He had an echo performed yesterday, which revealed normal LV function and mild LVH, EF of 60% to 65%, abnormal diastolic function, trace pericardial effusion, mild left atrial enlargement. The patient was started on aspirin, metoprolol, and amlodipine. Of note, his losartan was discontinued at the onset of the admission due to the renal insufficiency. He said he is able to ambulate about the saucedo without a problem. 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 He said he does heavy work every day and feels well doing that and has had no exertional chest pain. He does report that about a year ago he had marked hypertension and chest pain, was seen at [facility] and transferred to [facility]; the records are not available but according to the patient, he had a catheterization, which revealed 30% lesion and he was managed medically with aspirin. 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 He has not had any caffeine in 2 weeks. PAST SURGICAL HISTORY: Includes appendectomy 20 years ago; he also had central line and PEG tube; he has squamous cell carcinoma, which is diagnosed recently as T2N1M0, p16+ at the right base of the tongue. MEDICATIONS: Include: 1. Acetaminophen. 2. Allopurinol 100 mg a day. 3. Amlodipine, started yesterday, 10 mg. 4. Aspirin 81 mg a day started yesterday. 5. Calcium 500 mg q.4 p.r.n. 6. Neurontin 100 mg b.i.d. 7. Subcu heparin 5000 q.8. 8. Metoprolol succinate 25 mg a day started yesterday evening. 9. Miracle Mouthwash. 10. Zofran 4 mg IV q.4 p.r.n. 11. Percocet 5/325 q.8 p.r.n. 12. Protonix 40 mg a day. 13. MiraLAX 17 g daily. 14. Senokot p.r.n. 15. Sodium bicarbonate antacid 1300 mg p.o. t.i.d. 16. Sodium chloride 75 cc an hour since this morning. 17. Ambien 10 mg at bedtime p.r.n. ALLERGIES: His allergies include PENICILLIN, which results in a rash. FAMILY HISTORY: His father of cancer at 68. His mother of cancer at 76. He has 1 sister who has no cardiac issues. SOCIAL HISTORY: He is but . He has 3 adult children, 1 son has a heart murmur. He has a history of tobacco, discontinued 15 years ago. REVIEW OF SYSTEMS: Review of systems x10 was negative except as above. He does report some swelling of his legs, which has been present since he has been hydrated aggressively this admission. PHYSICAL EXAM: He is a well-developed, well-nourished gentleman, overweight, in no apparent distress. Blood pressure 158/88, pulse of 74, O2 sat is 98% on room air, afebrile. Atraumatic, normocephalic. Extraocular muscles intact. There is some fullness of the right side of his neck and tattoos from radiation therapy. Carotids 2+ without bruits. No thyromegaly. Cardiac Exam: S1, S2 without murmurs, gallops, or rubs. Chest was clear. No CVAT. Abdomen: Obese. Bowel sounds present, nontender. Femoral pulses intact without bruits. Distal pulses intact with trace edema of the ankles. Trace to 1+ edema of the lower extremities and ankles. Deep tendon reflexes 2/4. Alert and oriented x3. A PEG tube was present as well as a right subclavian central line. DIAGNOSTIC STUDIES/LAB DATA: His CRP today was elevated at 45.69. BNP was elevated at 577. Calcium was low at 8.5, BUN 53, creatinine of 4.61, sodium 139 , potassium of 4.5. Troponins that were mentioned above, 0.05 yesterday. White count of 5.4, hematocrit of 30, hemoglobin of 10.7, platelet count of 177. Sed rate of 102 today. EKG from yesterday revealed sinus rhythm with left anterior hemiblock, poor R- wave progression, similar to 09/04/19. There is an EKG from 09/11/19, which was similar. An EKG from July of 2014 also revealed left anterior hemiblock , poor R-wave progression. He had a V/Q scan on 09/04/19 which was low probability. There was an area of intense activity projects into the region of the right atrium, which may be related to a fibrin sheath. Chest x-ray revealed that the Mediport catheter terminates near the superior cavoatrial junction. His venous Doppler revealed no evidence of DVT. IMPRESSION AND PLAN: My impression is that Mr. Pratt had chest pain of unclear etiology. He has a history of hypertension and nonobstructive coronary artery disease and an episode of hypertension and chest pain a year ago, which prompted a catheterization. He currently is being treated for squamous cell cancer of the tongue and has renal failure and has hypertension after discontinuing his losartan and hydrochlorothiazide and being hydrated aggressively. The etiology of symptoms is not clear. He does have elevated markers for inflammation and there was increased uptake of tracer at the junction of the Cddukm-b-Hias at the right atrium raising the possibility of localized inflammation. He had a minimal pericardial effusion, again raising the possibility of inflammatory process and pericarditis, especially in light of the mildly elevated troponins. Other possibilities include vasomotor dysfunction or spasm. For the time being, I have recommended the followin. We will continue blood pressure control on amlodipine and metoprolol as tolerated. 2. We will consider IV diuretics to decrease his volume load if agreeable to Nephrology. 3. He is to have a stress nuclear to monitor and evaluate for ischemia. 4. We will check lipid profile and consider statins at some point given his history of nonobstructive disease. 5. We will consider possibility of vasomotor dysfunction, spasm, and continue calcium channel blockers. 6. If continued blood pressure control is indicated, we could consider hydralazine or nitrates. 7. He is to have a stress nuclear to evaluate for ischemia. Further recommendations will depend on his clinical course. 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 9. Reducing his alcohol intake is recommended as well. [id number]/[facility] #: [id number] addendum: discussed with Dr. Walker via telelphone 1.16.20 pm. reviewed recommendations including consideration of evaluating/repositioning infusion catheter. [facility] 09.06.19 8;25 am [facility]AL[facility]
[2019-09-06] MEDS ORDERED: Labetalol IV* 5 MG/ML 20 ML VIAL ONE (00:52)
[2019-09-06] MEDS ORDERED: Metoprolol Tartrate IV* 1 MG/ML 5 ML VIAL ONE (00:54)
--- NOTE | 2019-09-06 01:05 | PN ---
Subjective Date of Service: 09/06/19 Interval History: CLINICAL ASSESSMENT TEAM WAS CALLED. There was concern because of his heart rate- will go to 200's. Rhythm strip and EKG revealed SVT. BP was in the 140's systolic when checked manually. He was having pain and palpitations. Metoprolol 5mg IV pushed was administered, after which patient had relief of his symptoms. No shortness of breath, Objective Active Medications: Acetaminophen (Tylenol Tab*) 650 mg PO Q4H PRN PRN Reason: pain/fever Last Admin: 09/02/19 16:04 Dose: 650 mg Allopurinol (Zyloprim Tab*) 100 mg PO DAILY [facility] Last Admin: 09/05/19 10:17 Dose: 100 mg Amlodipine Besylate (Norvasc Tab*) 10 mg PO DAILY [facility] Last Admin: 09/05/19 10:17 Dose: 10 mg Aspirin (Aspirin 81 Mg Chew Tab*) 81 mg PO DAILY [facility] Calcium Carbonate (Tums*) 500 mg PO Q4H PRN PRN Reason: HEARTBURN Last Admin: 09/02/19 07:28 Dose: 500 mg Gabapentin (Neurontin Cap(*)) 100 mg PO BID [facility] Last Admin: 09/05/19 21:17 Dose: 100 mg Heparin Sodium (Porcine) (Heparin Vial(*)) 5,000 units SUBCUT Q8H [facility] Last Admin: 09/05/19 21:17 Dose: 5,000 units Heparin Sodium (Porcine) (Heparin Flush Port (Ivad)) 5 ml FLUSH DAILY [facility]; Protocol Last Admin: 09/05/19 10:11 Dose: Not Given Sodium Chloride (Ns 0.9% 1000 Ml) 1,000 mls @ 75 mls/hr IV PER RATE [facility] Last Admin: 09/05/19 10:12 Dose: 75 mls/hr Metoprolol Succinate (Toprol Xl Tab*) 50 mg PO DAILY [facility] Multi-Ingredient Mouthwash/Gargle (Magic Mouth Was-Seb/Maal/Lido*) 5 ml SWISH SPIT QID [facility] Last Admin: 09/05/19 21:17 Dose: 5 ml Ondansetron HCl (Zofran Inj*) 4 mg IV Q4H PRN PRN Reason: NAUSEA/VOMITING Last Admin: 09/05/19 08:50 Dose: 4 mg Oxycodone/Acetaminophen (Percocet 5/325 Tab*) 1 tab PO Q8H PRN PRN Reason: PAIN - MODERATE Last Admin: 09/04/19 06:23 Dose: 1 tab Pantoprazole Sodium (Protonix Tab*) 40 mg PO DAILY PRN PRN Reason: INDIGESTION Last Admin: 09/03/19 08:31 Dose: 40 mg Polyethylene Glycol/Electrolytes (Miralax*) 17 gm PO DAILY [facility] Last Admin: 09/05/19 10:16 Dose: 17 gm Senna (Senokot 8.6 Mg Tab*) 1 tab PO BID PRN PRN Reason: CONSTIPATION Last Admin: 09/04/19 08:37 Dose: 1 tab Sodium Bicarbonate (Sodium Bicarbonate (Antacid)*) 1,300 mg PO TID [place] Last Admin: 09/05/19 21:16 Dose: 1,300 mg Zolpidem Tartrate (Ambien Tab*) 10 mg PO BEDTIME PRN PRN Reason: INSOMNIA Last Admin: 09/01/19 22:02 Dose: 10 mg Vital Signs - 8 hr 09/05/19 09/05/19 09/05/19 19:39 20:00 21:17 Temperature 98.4 F Pulse Rate 69 Respiratory 16 17 18 Rate Blood Pressure 143/69 (mmHg) O2 Sat by Pulse 97 Oximetry 09/06/19 00:07 Temperature Pulse Rate Respiratory 16 Rate Blood Pressure (mmHg) O2 Sat by Pulse Oximetry Oxygen Devices in Use Now: None Appearance: Lying in bed, in mild distress Eyes: PERRLA Ears/Nose/Mouth/Throat: Mucous Membranes Moist Respiratory: Symmetrical Chest Expansion and Respiratory Effort, Clear to Auscultation Cardiovascular: - - Regular tachycardia, with mild chest wall tenderness Abdominal: NL Sounds; No Tenderness; No Distention, No Hepatosplenomegaly Neurological: Alert and Oriented x 3 Result Diagrams: 09/05/19 06:15 09/05/19 06:15 Microbiology and Other Data: Microbiology 09/02/19 21:00 Urine Culture - Final Urine No Growth (<1,000 CFU/mL) Assess/Plan/Problems-Billing Assessment: - Patient Problems (1) SVT (supraventricular tachycardia) Current Visit: Yes Status: Acute Code(s): I47.1 - SUPRAVENTRICULAR TACHYCARDIA SNOMED Code(s): 7660606 Comment: Episode of SVT gave 5mg metoprolol IV push with relief of symptoms and resolution of SVT episodes. increased his regular metoprolol dose to 50mg daily. will get BMP, MG, Phos, and troponin. discussed with oncology independent agent music education- one consideration for his symptoms and elevated troponin- could be due to chemo-port placement- could be irritating the right attrium. At this point will continue to monitor the patient, will consider calling surgery if patient decompensates acutely overnight- otherwise will need to consider surgery in the AM- if cardiology believes the port should be removed. Status and Disposition: transfer to [facility] Critical care time spent 35 minutes.
[2019-09-06] MEDS: NS 0.9% 1000 ML** 1,000 ML IV SCH (02:05)
[2019-09-06 02:10] LABS: Anion Gap 10 mmol/L (2-11); BUN/Creatinine Ratio 11.6 (8-20); Blood Urea Nitrogen 50 mg/dL (6-24); CO2 Carbon Dioxide 26 mmol/L (22-32); Calcium 8.5 mg/dL (8.6-10.3); Chloride 105 mmol/L (101-111); EGFR African American 17.3 (>60); EGFR Non-African American 14.3 (>60); Glucose 93 mg/dL (70-100); Magnesium 1.5 mg/dL (1.9-2.7); Phosphorus 4.7 mg/dL (2.5-5.0); Potassium 3.9 mmol/L (3.5-5.0); Sodium 141 mmol/L (135-145)
[2019-09-06 02:19] LABS: Troponin I 0.04 ng/mL (<0.03)
[2019-09-06] MEDS ORDERED: Magnesium Sulfate 1 GM IV* 1 GM/100 ML BAG IV ONE ×3 (03:43→18:00)
[2019-09-06] MEDS: Heparin VIAL(*) 5000 UNITS/ML VIAL (FIVE THOUSAND) SUBCUT SCH ×3 (05:26→22:00)
[2019-09-06] MEDS: Acetaminophen TAB* 325 MG PO PRN (06:28)
[2019-09-06] MEDS: Sodium Bicarbonate (ANTACID)* 650 MG TAB PO SCH ×3 (08:26→20:14)
[2019-09-06] MEDS: amLODIPine TAB* 5 MG PO SCH (08:26)
[2019-09-06] MEDS: Metoprolol Succinate XL TAB* 50 MG PO SCH (08:26)
[2019-09-06] MEDS: Allopurinol TAB* 100 MG PO SCH (08:26)
[2019-09-06] MEDS: Gabapentin CAP(*) 100 MG PO SCH ×2 (08:27→20:13)
[2019-09-06] MEDS: Aspirin 81 mg CHEW TAB* 81 MG TAB.CHEW PO SCH (08:27)
[2019-09-06] MEDS: Polyethylene Glycol 3350* 17 GM PACKET PO SCH (08:28)
[2019-09-06] MEDS: Magic Mouth Was-BEN/MAAL/LIDO SWISH SPIT SCH ×4 (08:30→20:14)
[2019-09-06] MEDS: Ondansetron INJ* 2 MG/ML VIAL IV PRN (08:41)
--- NOTE | 2019-09-06 09:40 | ECHO ---
*[facility]* [place] [address] Fax #: [phone] Limited Transthoracic Echocardiogram Patient: Bob Pratt : 1960 Study Date: 09/06/2019 Age: 58 Gender: M HR: 71 bpm Height: 67 in /170.2 cm BSA: 2.14 m^2 Weight: 206 lb /93.6 kg BMI: 32.3 kg/m^2 *Senior International Tax Manager: * Alysa Solis RDCS RN *Referring Physician: * Micaela Meyer *Reading Physician: * Lance Nur MD Indications: Tachycardia, supraventricular paroxysmal. Pericardial Effusion. Conclusions Summary: Right atrium: The tip of a catheter is noted in right atrium. Study data: Transthoracic echocardiogram. This is a LIMITED study to evaluate the pericardial effusion and assess the right atrium for catheter placement. A full echocardiogram was performed on 09/05/2019. Procedure: Transthoracic echocardiography was performed. Image quality was fair. Location: Bedside. Patient status: Inpatient. Patient room number: 445-02. Comparison is made to the study of 09/05/2019. Rhythm: Normal sinus rhythm. Findings Left ventricle: The estimated ejection fraction is 60-65%. Wall motion is normal; there are no regional wall motion abnormalities. Right ventricle: Systolic function is normal. Right atrium: The tip of a catheter is noted in right atrium. This area was not visualized as well on the prior exam. Pericardium: A trace pericardial effusion is identified. It measures 0.4 cm anteriorly and 0.3 cm posteriorly in the ADELITA view. A pericardial effusion is identified. The pericardial effusion has not changed since the previous study. Prepared and electronically signed by Lance Nur MD 09/06/2019 09:39
[2019-09-06] MEDS ORDERED: Regadenoson* 0.4 MG/5 ML SYRINGE ONE (11:34)
--- NOTE | 2019-09-06 12:29 | PN ---
Progress Note - Progress Note Date of Service: 09/06/19 SOAP: Subjective: [Had an acute episode of SVT overnight which broke with metoprolol push. Repeat echo this am demonstrates port catheter tip in the R atrium. He reports that he is feeling well at this moment and has had no further episodes of chest pain, SOB or dysrhythmia since the overnight event. ] Objective: [ Vital Signs: Temp Pulse Resp BP Pulse Ox 98.1 F 78 18 163/90 98 09/06/19 04:49 09/06/19 04:49 09/06/19 11:47 09/06/19 04:49 09/06/19 04:49 Acetaminophen (Tylenol Tab*) 650 mg PO Q4H PRN PRN Reason: pain/fever Last Admin: 09/06/19 06:28 Dose: 650 mg Allopurinol (Zyloprim Tab*) 100 mg PO DAILY [facility] Last Admin: 09/06/19 08:26 Dose: 100 mg Amlodipine Besylate (Norvasc Tab*) 10 mg PO DAILY [facility] Last Admin: 09/06/19 08:26 Dose: 10 mg Aspirin (Aspirin 81 Mg Chew Tab*) 81 mg PO DAILY [facility] Last Admin: 09/06/19 08:27 Dose: 81 mg Calcium Carbonate (Tums*) 500 mg PO Q4H PRN PRN Reason: HEARTBURN Last Admin: 09/02/19 07:28 Dose: 500 mg Gabapentin (Neurontin Cap(*)) 100 mg PO BID [facility] Last Admin: 09/06/19 08:27 Dose: 100 mg Heparin Sodium (Porcine) (Heparin Vial(*)) 5,000 units SUBCUT Q8H [facility] Last Admin: 09/06/19 05:26 Dose: 5,000 units Heparin Sodium (Porcine) (Heparin Flush Port (Ivad)) 5 ml FLUSH DAILY [facility]; Protocol Last Admin: 09/06/19 08:44 Dose: Not Given Sodium Chloride (Ns 0.9% 1000 Ml) 1,000 mls @ 75 mls/hr IV PER RATE [facility] Last Admin: 09/06/19 02:05 Dose: 75 mls/hr Metoprolol Succinate (Toprol Xl Tab*) 50 mg PO DAILY [facility] Last Admin: 09/06/19 08:26 Dose: 50 mg Multi-Ingredient Mouthwash/Gargle (Magic Mouth Was-Seb/Maal/Lido*) 5 ml SWISH SPIT QID [facility] Last Admin: 09/06/19 08:30 Dose: 5 ml Ondansetron HCl (Zofran Inj*) 4 mg IV Q4H PRN PRN Reason: NAUSEA/VOMITING Last Admin: 09/06/19 08:41 Dose: 4 mg Oxycodone/Acetaminophen (Percocet 5/325 Tab*) 1 tab PO Q8H PRN PRN Reason: PAIN - MODERATE Last Admin: 09/04/19 06:23 Dose: 1 tab Pantoprazole Sodium (Protonix Tab*) 40 mg PO DAILY PRN PRN Reason: INDIGESTION Last Admin: 09/03/19 08:31 Dose: 40 mg Polyethylene Glycol/Electrolytes (Miralax*) 17 gm PO DAILY [facility] Last Admin: 09/06/19 08:28 Dose: Not Given Senna (Senokot 8.6 Mg Tab*) 1 tab PO BID PRN PRN Reason: CONSTIPATION Last Admin: 09/04/19 08:37 Dose: 1 tab Sodium Bicarbonate (Sodium Bicarbonate (Antacid)*) 1,300 mg PO TID [facility] Last Admin: 09/06/19 08:26 Dose: 1,300 mg Zolpidem Tartrate (Ambien Tab*) 10 mg PO BEDTIME PRN PRN Reason: INSOMNIA Last Admin: 09/01/19 22:02 Dose: 10 mg Laboratory Results - last 24 hr 09/05/19 09/05/19 09/05/19 06:15 13:57 13:57 ESR 102 H Sodium 139 Potassium 4.5 Chloride 107 Carbon Dioxide 24 Anion Gap 8 BUN 53 H Creatinine 4.61 H Est GFR ( Amer) 16.0 Est GFR (Non-Af Amer) 13.2 BUN/Creatinine Ratio 11.5 Glucose 89 Calcium 8.5 L Phosphorus Magnesium Total Bilirubin 0.50 AST 15 ALT 12 Alkaline Phosphatase 52 Troponin I 0.04 H* C-React Prot High Sens 45.69 H Total Protein 5.7 L Albumin 3.1 L Globulin 2.6 Albumin/Globulin Ratio 1.2 09/06/19 01:45 ESR Sodium 141 Potassium 3.9 Chloride 105 Carbon Dioxide 26 Anion Gap 10 BUN 50 H Creatinine 4.31 H Est GFR ( Amer) 17.3 Est GFR (Non-Af Amer) 14.3 BUN/Creatinine Ratio 11.6 Glucose 93 Calcium 8.5 L Phosphorus 4.7 Magnesium 1.5 L Total Bilirubin AST ALT Alkaline Phosphatase Troponin I 0.04 H* C-React Prot High Sens Total Protein Albumin Globulin Albumin/Globulin Ratio Exam: Gen: relatively well appearing 58 yo male in NAD HEENT: mild mucositis of the soft palate CV: RRR, no m/r/g Resp: CTA, no w/c/r Abd: PEG tube in place, soft and nonTTP Ext: trace edema] [Assessment: []58 yo male with 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 Hospitalized for supportive care with slow improvement in CrCl with continued good urine output. Course now complicated by recurrent chest pain with elevated troponin and now SVT. Catheter tip is sitting in the R atrium (confirmed by echo) which is likely driving his cardiac symptoms and troponin leak. Plan: []1. RADHA secondary to cisplatin, grade 3 - continued, but slow improvement - good urine output, minimal peripheral edema - cont maintenance fluids - elevated uric acid to 9.1 - now on low dose allopurinol at 100 mg daily - nephrology consultation appreciated - cont I/O monitoring 2. CP/SVT: - cardiology involvement is greatly appreciated - likely due to atrial irritation from catheter tip - pending surgical intervention to appropriately replace power port catheter. 3. Head/neck CA - cont RT - plan for additional chemotherapy dependent on recovery from this acute episode (C2 due 09/12) - anticipate cetuximab for C2 - gabapentin per radiation recommendations, modified dose due to severe renal impairment - magic mouth wash and baking soda/salt water rinses for mucositis support - reviewed need for PEG tube nutrition as RT cont.'s - appreciate property custodian cont.'d support 4. HTN - ARB/diuretic held at admission for RADHA - cont. HTN - now on calcium channel luis and beta luis full code Dispo: power port manipulation anticipated for later today. If no additional cardiac events overnight he may be able to be discharged home tomorrow.
[2019-09-06] MEDS ORDERED: oxyCODONE/Acetamin 5/325 MG* TAB PO PRN (12:30)
[2019-09-06 12:54] LABS: Calcium 8.7 mg/dL (8.6-10.3); EGFR African American 18.3 (>60); EGFR Non-African American 15.2 (>60); Magnesium 1.8 mg/dL (1.9-2.7); Potassium 4.1 mmol/L (3.5-5.0)
[2019-09-06 12:57] LABS: Troponin I 0.03 ng/mL (<0.03)
--- NOTE | 2019-09-06 15:50 | PN ---
Progress Note - Progress Note Date of Service: 09/06/19 Note: Inpatient Nephrology FU Note: Performed by Dr. Edil Arevalo, [facility] Nephrology 09/06/2019 Had an acute episode of SVT last night, treated with metoprolol. Echo demonstrates tip of port catheter in the Rt atrium, needs to be pulled. 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 No overnight events BUN/sCr trend 50/4.31~09/06 53/4.61~09/05 53/4.67~09/04 58/4.79~09/03 63/5.05~09/02 71/5.13~09/01 75/4.84~08/31 73/4.81~08/30/2019 RADHA improving Active Medications: Acetaminophen (Tylenol Tab*) 650 mg PO Q4H PRN PRN Reason: pain/fever Last Admin: 09/06/19 06:28 Dose: 650 mg Allopurinol (Zyloprim Tab*) 100 mg PO DAILY [facility] Last Admin: 09/06/19 08:26 Dose: 100 mg Amlodipine Besylate (Norvasc Tab*) 10 mg PO DAILY [facility] Last Admin: 09/06/19 08:26 Dose: 10 mg Aspirin (Aspirin 81 Mg Chew Tab*) 81 mg PO DAILY [facility] Last Admin: 09/06/19 08:27 Dose: 81 mg Calcium Carbonate (Tums*) 500 mg PO Q4H PRN PRN Reason: HEARTBURN Last Admin: 09/02/19 07:28 Dose: 500 mg Gabapentin (Neurontin Cap(*)) 100 mg PO BID [facility] Last Admin: 09/06/19 08:27 Dose: 100 mg Heparin Sodium (Porcine) (Heparin Vial(*)) 5,000 units SUBCUT Q8H [facility] Last Admin: 09/06/19 13:57 Dose: 5,000 units Heparin Sodium (Porcine) (Heparin Flush Port (Ivad)) 5 ml FLUSH DAILY [facility]; Protocol Last Admin: 09/06/19 08:44 Dose: Not Given Sodium Chloride (Ns 0.9% 1000 Ml) 1,000 mls @ 75 mls/hr IV PER RATE [facility] Last Admin: 09/06/19 02:05 Dose: 75 mls/hr Metoprolol Succinate (Toprol Xl Tab*) 50 mg PO DAILY [facility] Last Admin: 09/06/19 08:26 Dose: 50 mg Multi-Ingredient Mouthwash/Gargle (Magic Mouth Was-Seb/Maal/Lido*) 5 ml SWISH SPIT QID [facility] Last Admin: 09/06/19 13:57 Dose: 5 ml Ondansetron HCl (Zofran Inj*) 4 mg IV Q4H PRN PRN Reason: NAUSEA/VOMITING Last Admin: 09/06/19 08:41 Dose: 4 mg Oxycodone/Acetaminophen (Percocet 5/325 Tab*) 1 tab PO Q8H PRN PRN Reason: PAIN - SEVERE Pantoprazole Sodium (Protonix Tab*) 40 mg PO DAILY PRN PRN Reason: INDIGESTION Last Admin: 09/03/19 08:31 Dose: 40 mg Polyethylene Glycol/Electrolytes (Miralax*) 17 gm PO DAILY [facility] Last Admin: 09/06/19 08:28 Dose: Not Given Senna (Senokot 8.6 Mg Tab*) 1 tab PO BID PRN PRN Reason: CONSTIPATION Last Admin: 09/04/19 08:37 Dose: 1 tab Sodium Bicarbonate (Sodium Bicarbonate (Antacid)*) 1,300 mg PO TID [facility] Last Admin: 09/06/19 13:57 Dose: 1,300 mg Tramadol HCl (Ultram*) 50 mg PO Q12H PRN PRN Reason: PAIN - MODERATE Zolpidem Tartrate (Ambien Tab*) 10 mg PO BEDTIME PRN PRN Reason: INSOMNIA Last Admin: 09/01/19 22:02 Dose: 10 mg Objective: .Vital Signs: Temp Pulse Resp BP Pulse Ox 97.7 F 67 18 152/85 96 09/06/19 08:22 09/06/19 08:22 09/06/19 11:47 09/06/19 08:22 09/06/19 08:22 .Heart: Regular rate and rhythm No murmur or gallop Trace LE Edema No Rub .Lungs: Clear to auscultation and percussion No wheezes or Crackles .Extremities: Trace LE edema Laboratory Reviewed Sodium 140 mmol/L (135-145) 09/06/19 12:29 Potassium 4.1 mmol/L (3.5-5.0) 09/06/19 12:29 BUN 49 mg/dL (6-24) H 09/06/19 12:29 Creatinine 4.09 mg/dL (0.67-1.17) H 09/06/19 12:29 Calcium 8.7 mg/dL (8.6-10.3) 09/06/19 12:29 Magnesium 1.8 mg/dL (1.9-2.7) L 09/06/19 12:29 AST 15 U/L (13-39) 09/05/19 06:15 ALT 12 U/L (7-52) 09/05/19 06:15 Assessment and Plan: Baseline sCr was normal. RADHA 2/2 to Cisplatin induced ATN, non-Oliguric. Possible TLS, on Allopurinol BUN/sCr better persistently Stop IVF Electrolytes Ok BP Ok Avoid Contrast, NSAIDs or Nephrotoxic ChemoRx He was informed about lab/radiology results & prognosis. All questions were answered. He was made part of the treatment plan. Will sign off and f/u in renal clinic in 1 week
[2019-09-06] MEDS ORDERED: Clindamycin 900 MG/D5W BAG(*) 900 MG/50 ML BAG IVPB ONE (18:40)
[2019-09-07] MEDS: Heparin VIAL(*) 5000 UNITS/ML VIAL (FIVE THOUSAND) SUBCUT SCH ×3 (05:12→23:05)
[2019-09-07] MEDS: Metoprolol Succinate XL TAB* 50 MG PO SCH (08:47)
[2019-09-07] MEDS: Magic Mouth Was-BEN/MAAL/LIDO SWISH SPIT SCH ×4 (08:47→20:14)
[2019-09-07] MEDS: Sodium Bicarbonate (ANTACID)* 650 MG TAB PO SCH ×3 (08:47→20:14)
[2019-09-07] MEDS: amLODIPine TAB* 5 MG PO SCH (08:47)
[2019-09-07] MEDS: Allopurinol TAB* 100 MG PO SCH (08:48)
[2019-09-07] MEDS: Gabapentin CAP(*) 100 MG PO SCH ×2 (08:48→20:14)
[2019-09-07] MEDS: Aspirin 81 mg CHEW TAB* 81 MG TAB.CHEW PO SCH (08:48)
[2019-09-07] MEDS: Polyethylene Glycol 3350* 17 GM PACKET PO SCH (08:52)
[2019-09-07] MEDS ORDERED: ceFAZolin 2 GM PREMIX in ORs 0 GM/0 ML BAG ONE (09:19)
[2019-09-07] MEDS ORDERED: Clindamycin 900 MG/D5W BAG(*) 900 MG/50 ML BAG IVPB ONE (10:32)
[2019-09-07] MEDS ORDERED: Lidocaine 1% w EPI 1:100,000* MDV 20 ML VIAL ONE (10:41)
[2019-09-07] MEDS ORDERED: Heparin 2 UNITS/ML IVPREMIX* 0 ML IV ONE (11:02)
--- NOTE | 2019-09-07 11:55 | OP ---
Operative Report - Blank - Operative Report Date of Operation: 09/07/19 Note: Pre-OP Diagnoses: malfunctioning powerport Post-op Diagnosis: same Procedure: revision of powerport Surgeon: Rose Asst: none Anethesia: local EBL: none IVF: none Specimen: none Drains: none
[2019-09-07] MEDS ORDERED: Magnesium Sulfate 2 GM IV* 2 GM/50 ML BAG IVPB ONE (13:50)
[2019-09-07] MEDS: traMADol TAB* 50 MG PO PRN (13:52)
--- NOTE | 2019-09-07 13:55 | PN ---
Progress Note - Progress Note Date of Service: 09/07/19 SOAP: Subjective: [Port revised this morning. No overnight events. Continues to feel well. No n /v. Some throat pain. Difficulty swallowing meats.] Objective: [ Vital Signs: Temp Pulse Resp BP Pulse Ox 97.3 F 84 16 152/87 100 09/07/19 11:58 09/07/19 11:58 09/07/19 11:58 09/07/19 11:58 09/07/19 11:58 Acetaminophen (Tylenol Tab*) 650 mg PO Q4H PRN PRN Reason: pain/fever Last Admin: 09/06/19 06:28 Dose: 650 mg Allopurinol (Zyloprim Tab*) 100 mg PO DAILY [facility] Last Admin: 09/07/19 08:48 Dose: 100 mg Amlodipine Besylate (Norvasc Tab*) 10 mg PO DAILY [facility] Last Admin: 09/07/19 08:47 Dose: 10 mg Aspirin (Aspirin 81 Mg Chew Tab*) 81 mg PO DAILY [facility] Last Admin: 09/07/19 08:48 Dose: 81 mg Calcium Carbonate (Tums*) 500 mg PO Q4H PRN PRN Reason: HEARTBURN Last Admin: 09/02/19 07:28 Dose: 500 mg Gabapentin (Neurontin Cap(*)) 100 mg PO BID [facility] Last Admin: 09/07/19 08:48 Dose: 100 mg Heparin Sodium (Porcine) (Heparin Vial(*)) 5,000 units SUBCUT Q8H [facility] Last Admin: 09/07/19 13:38 Dose: 5,000 units Heparin Sodium (Porcine) (Heparin Flush Port (Ivad)) 5 ml FLUSH DAILY [facility]; Protocol Last Admin: 09/07/19 08:52 Dose: Not Given Magnesium Sulfate (Magnesium Sulfate 2 Gm Iv*) 2 gm in 50 mls @ 50 mls/hr IVPB ONCE ONE Stop: 09/07/19 14:49 Metoprolol Succinate (Toprol Xl Tab*) 50 mg PO DAILY [facility] Last Admin: 09/07/19 08:47 Dose: 50 mg Multi-Ingredient Mouthwash/Gargle (Magic Mouth Was-Seb/Maal/Lido*) 5 ml SWISH SPIT QID [facility] Last Admin: 09/07/19 13:38 Dose: 5 ml Ondansetron HCl (Zofran Inj*) 4 mg IV Q4H PRN PRN Reason: NAUSEA/VOMITING Last Admin: 09/06/19 08:41 Dose: 4 mg Oxycodone/Acetaminophen (Percocet 5/325 Tab*) 1 tab PO Q8H PRN PRN Reason: PAIN - SEVERE Pantoprazole Sodium (Protonix Tab*) 40 mg PO DAILY PRN PRN Reason: INDIGESTION Last Admin: 09/03/19 08:31 Dose: 40 mg Polyethylene Glycol/Electrolytes (Miralax*) 17 gm PO DAILY [facility] Last Admin: 09/07/19 08:52 Dose: Not Given Senna (Senokot 8.6 Mg Tab*) 1 tab PO BID PRN PRN Reason: CONSTIPATION Last Admin: 09/04/19 08:37 Dose: 1 tab Sodium Bicarbonate (Sodium Bicarbonate (Antacid)*) 1,300 mg PO TID [facility] Last Admin: 09/07/19 13:39 Dose: 1,300 mg Tramadol HCl (Ultram*) 50 mg PO Q12H PRN PRN Reason: PAIN - MODERATE Zolpidem Tartrate (Ambien Tab*) 10 mg PO BEDTIME PRN PRN Reason: INSOMNIA Last Admin: 09/01/19 22:02 Dose: 10 mg Exam: Gen: relatively well appearing 58 yo male in NAD HEENT: mild mucositis of the soft palate CV: RRR, no m/r/g Resp: CTA, no w/c/r Abd: PEG tube in place, soft and nonTTP Ext: trace edema] [Assessment: []58 yo male with 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 Hospitalized for supportive care with slow improvement in CrCl with continued good urine output. Course now complicated by recurrent chest pain with elevated troponin and now SVT. Catheter tip is sitting in the R atrium (confirmed by echo) which is likely driving his cardiac symptoms and troponin leak. Port has now been revised. Plan: []1. RADHA secondary to cisplatin, grade 3 - continued, but slow improvement - good urine output, minimal peripheral edema - stop maintenance fluids today that he is back to eating and drinking adequately again - elevated uric acid to 9.1 - now on low dose allopurinol at 100 mg daily - nephrology consultation appreciated - cont I/O monitoring 2. CP/SVT: - cardiology involvement is greatly appreciated - likely due to atrial irritation from catheter tip - stress test negative - port has now been revised - cont telemetry monitoring 3. Head/neck CA - cont RT - plan for additional chemotherapy dependent on recovery from this acute episode (C2 due 09/12) - anticipate cetuximab for C2 - gabapentin per radiation recommendations, modified dose due to severe renal impairment - magic mouth wash and baking soda/salt water rinses for mucositis support - reviewed need for PEG tube nutrition as RT cont.'s - appreciate supervisor detasseling crew cont.'d support 4. HTN - ARB/diuretic held at admission for RADHA - cont. HTN - now on calcium channel luis and beta luis full code Dispo: if no overnight events, plan dc home tomorrow
--- NOTE | 2019-09-07 16:52 | OP ---
AMENDED REPORT NOW INCLUDES DATE OF OPERATION CC: [facility]; Dr. Dagoberto Nunez; [facility], Dr. Lance Nur * DATE OF OPERATION: 09/07/19 - ROOM #445 DATE OF : 62 SURGEON: Dr. Rose. VALVE REPAIRER: None. ANESTHESIA: Local anesthesia. PRE-OP DIAGNOSIS: Malfunctioning PowerPort. POST-OP DIAGNOSIS: Malfunctioning PowerPort. OPERATIVE PROCEDURE: Revision of PowerPort. ESTIMATED BLOOD LOSS: None. FLUIDS: No crystalloid fluid given. SPECIMEN: None. COMPLICATIONS: None. INDICATION: Mr. Pratt is a 58-year-old gentleman who is status post PowerPort placement. The port was infusing well, but there was concern that it was causing arrhythmia due to the location of the tip. I discussed the case with the hospitalist service, who have been in discussion with Cardiology, and the recommendation was for addressing this by shortening the tip of the catheter. I described this to the patient, going over the risks, benefits and alternatives, although the alternatives were minimal as far as the cardiology and hospitalist concern and so, we therefore proceed with revision of the catheter. DESCRIPTION OF PROCEDURE: The patient was taken to the operating room and placed on the operating table in supine position. Preoperative antibiotics were given. The patient's right upper chest and neck were prepped and draped and a time-out was performed. The incision over the PowerPort was reopened, scant fluid was identified, but no bleeding. The PowerPort was brought out through the pocket and cut from its sutures. We then cut off approximately 3 cm of catheter and reconnected it to the pre-flushed PowerPort along with the hub. We repeated the fluoroscopy as we had done just before starting the procedure and noted that the tip of the catheter was backed out of the atrium. The PowerPort was then dropped back into the pocket, sutured with 0 Prolene sutures at the lateral and medial aspects. The wound was then irrigated and reapproximated with 3-0 Vicryl, followed by 4-0 Monocryl and subcuticular stitches. Steri-Strips and sterile dressing were applied. The patient tolerated the procedure well and was transferred to PACU in stable condition. [id number]/[facility] #: [id number] [facility]
[2019-09-08 04:58] LABS: ABS Basophils 0.1 10^3/ul (0-0.2); ABS Eosinophils 0.2 10^3/ul (0-0.6); ABS Lymphocytes 0.5 10^3/ul (1.0-4.8); ABS Monocytes 0.6 10^3/ul (0-0.8); ABS Neutrophils 2.6 10^3/ul (1.5-7.7); Eosinophil % 5.6 %; Hematocrit 28 % (42-52); Hemoglobin 10.8 g/dL (14.0-18.0); Lymphocyte % 12.6 %; Mean Corpuscular HGB Conc 39 g/dL (31-36); Mean Corpuscular Hemoglobin 36 pg (27-31); Mean Corpuscular Volume 92 fL (80-94); Mean Platelet Volume 8.1 fL (7.4-10.4); Platelet Count 236 10^3/uL (150-450); Red Blood Count 3.04 10^6 /uL (4.18-5.48); Red Cell Distribution Width 12 % (10-15); White Blood Count 4.1 10^3/uL (3.5-10.8)
[2019-09-08 05:10] LABS: BUN/Creatinine Ratio 13.4 (8-20); Calcium 8.9 mg/dL (8.6-10.3); EGFR African American 23.1 (>60); EGFR Non-African American 19.1 (>60); Magnesium 2.2 mg/dL (1.9-2.7); Potassium 3.5 mmol/L (3.5-5.0)
[2019-09-08] MEDS: Heparin VIAL(*) 5000 UNITS/ML VIAL (FIVE THOUSAND) SUBCUT SCH (05:40)
[2019-09-08] MEDS: Gabapentin CAP(*) 100 MG PO SCH (08:30)
[2019-09-08] MEDS: Metoprolol Succinate XL TAB* 50 MG PO SCH (08:30)
[2019-09-08] MEDS: amLODIPine TAB* 5 MG PO SCH (08:30)
[2019-09-08] MEDS: Allopurinol TAB* 100 MG PO SCH (08:30)
[2019-09-08] MEDS: Sodium Bicarbonate (ANTACID)* 650 MG TAB PO SCH (08:31)
[2019-09-08] MEDS: Aspirin 81 mg CHEW TAB* 81 MG TAB.CHEW PO SCH (08:32)
[2019-09-08] MEDS: Magic Mouth Was-BEN/MAAL/LIDO SWISH SPIT SCH (08:32)
[2019-09-08] MEDS: Polyethylene Glycol 3350* 17 GM PACKET PO SCH (08:34)
[2019-09-08] MEDS: traMADol TAB* 50 MG PO PRN (08:36)
[2019-09-08 11:49] VITALS: BP 129/65
--- NOTE | 2019-09-08 16:33 | DS ---
CC: Dr. Mikhail Tabares; Dr. Arevalo; Dr. Nur; Dr. Rose * DISCHARGE SUMMARY: DATE OF ADMISSION: 08/30/19 DATE OF DISCHARGE: 09/08/19 PRIMARY CARE PROVIDER: Dr. Mikhail Tabares. PRIMARY ONCOLOGIST AND ATTENDING PHYSICIAN: Dr. Justin Nunez.* (DICTATED BY RUMA MENSAH) CONSULTING SURGEON: Dr. Rose. CONSULTING INVESTIGATOR FRAUD: Dr. Romana Arevalo. CONSULTING NATURAL RESOURCES PROFESSOR: Dr. Nur. DISCHARGING PROVIDER: RUMA Mensah. PRIMARY DISCHARGE DIAGNOSES: 1. Acute kidney injury secondary to cisplatin chemotherapy. 2. Chest pain and supraventricular tachycardia with elevated troponins secondary to malpositioned PowerPort catheter, now status post port revision. 3. Right base of tongue squamous cell carcinoma, undergoing concurrent chemotherapy and radiation. 4. Hypertension. DISCHARGE MEDICATIONS: 1. Omeprazole 20 mg p.o. daily. 2. Acetaminophen 650 mg p.o. q.6 hours as needed for pain or fever. 3. Allopurinol 100 mg p.o. daily. 4. Amlodipine 5 mg p.o. daily. 5. Calcium carbonate 500 mg p.o. q.4 hours as needed for dyspepsia. 6. Gabapentin 100 mg p.o. twice daily. 7. Magic mouthwash 5 mL swish and spit 4 times daily as needed. 8. Oxycodone with acetaminophen 5/325 one tablet p.o. q.8 hours as needed for pain. 9. Senna 1 tablet p.o. twice daily as needed for constipation. 10. Sodium bicarbonate 1300 mg p.o. 3 times daily. HOSPITAL IMAGIN. Renal ultrasound, 08/30/19, demonstrates no hydronephrosis. 2. Chest x-ray, 09/04/19, shows no acute cardiopulmonary process. 3. V/Q scan, 09/04/19, shows no perfusion area defect, no evidence for PE. There is a focal area of intense activity, which projects into the region of the right atrium, which may be related to the tip of the central venous catheter. 4. Venous Doppler study shows no evidence of DVT. 5. Nuclear stress test shows no fixed or reversible perfusion defects. 6. Transthoracic echocardiogram, 09/04/19, shows normal ejection fraction of 60 % to 65% with no significant valvular disease. 7. Repeat limited transthoracic echocardiogram, 09/06/19, shows no regional wall abnormalities, tip of the catheter is noted within the right atrium, and there is a trace pericardial effusion. HOSPITAL COURSE: This is a 58-year-old gentleman with a T2N1M0, p16 positive base of right tongue squamous cell carcinoma, who started concurrent chemotherapy and radiation on 08/22/19. The patient presented for routine weekly labs in the oncology suite and found to have a grade 3 acute kidney injury with measured creatinine of 4.8 with his baseline between 0.8 and 1.0. The patient was relatively asymptomatic at that time, complaining only of some mild fatigue, but no significant nausea or vomiting. Due to the severity of his acute kidney injury, he was subsequently admitted for supportive care measures. He was aggressively hydrated. His creatinine initially climbed further peaking at approximately 5.1. He had renal ultrasound that showed no evidence of hydronephrosis and underwent evaluation by loss prevention research engineer Dr. Arevalo, who agreed that the most likely etiology for his renal dysfunction was ATN secondary to cisplatin chemotherapy. The patient's renal function continued to improve slowly. His urine output was adequate throughout his entire hospitalization. The patient developed an acute onset of chest pain and shortness of breath. An EKG was obtained at that time, which was benign and symptoms self resolved, and troponin was checked and initially measured at 0.07 and remained stable and drifted back down to 0.05, then 0.04. The patient was initially asymptomatic for another 12-hour period, but with ambulation to the bathroom had another chest pain episode. He underwent V/Q scan, which was negative for PE and subsequently requested cardiology consultation. The patient had reported normal cardiac catheterization just 1 year prior and plans were made for nuclear stress testing to evaluate for new ischemia. Transthoracic echocardiogram was benign. He did have some pericardial thickening, however, and question of pericarditis was raised. The next overnight period, the patient went into SVT with rates up into the low 200s. He was treated with a push of 5 mg of metoprolol, which brought him back down to a normal heart rate. Due to findings on the V/Q scan which showed some enhancement in the right atria, a repeat echocardiogram was completed, which confirmed the tip of his PowerPort catheter seated within the right atrium, which was thought to likely be driving his troponin leak, intermittent chest pain in driving episodes of SVT. The patient subsequently underwent revision of his PowerPort catheter with the tip backed out of the right atria into the SVC. The patient tolerated the procedure quite well without any complications. The patient's renal function continued to improve throughout his hospital stay, and creatinine at the time of discharge is 3.3. DISPOSITION AND FOLLOWUP PLAN: The patient is being discharged to home in stable condition. He will be seen for followup by the oncology group later this week. He has continued and will continue his radiation treatments as scheduled. He did have some increasing mucositis during this hospital stay and was started on supportive medications as described in his discharge medication list. Due to the severity of his acute kidney injury, the patient will not receive any additional cisplatin and plan cetuximab for cycle 2, which is due later this week. The patient requires nephrology followup. He is being continued on sodium bicarb at the time of discharge and renal function will be followed closely as an outpatient by the oncology group. RUMA MENSAH [id number]/[facility] #: [id number] ODAL[facility]
== END 2019-09-08 12:50 | disposition home or self-care (01) | DRG 469 ==
LOC: OBSVTOIN 13:31 → MED 13:31 → MEDTELE 09-06 01:18
PROVIDERS: ADMIT Internal Medicine Hematology & Oncology; ATTEND Internal Medicine Hematology & Oncology
PROC: 0JWT0WZ Revision of Totally Implantable Vascular Access Device in Trunk Subcutaneous Tissue and Fascia, Open Approach (ICD-10-PCS; principal; 2019-09-07 10:30)
DX: N17.9 Acute kidney failure, unspecified (principal); T82.524A Displacement of infusion catheter, initial encounter; I47.1 Supraventricular tachycardia; C01 Malignant neoplasm of base of tongue; T45.1X5A Adverse effect of antineoplastic and immunosuppressive drugs, initial encounter; I10 Essential (primary) hypertension; K21.9 Gastro-esophageal reflux disease without esophagitis; E87.70 Fluid overload, unspecified; I25.10 Atherosclerotic heart disease of native coronary artery without angina pectoris; Y82.8 Other medical devices associated with adverse incidents; R07.9 Chest pain, unspecified; R79.89 Other specified abnormal findings of blood chemistry; K59.00 Constipation, unspecified; Z79.899 Other long term (current) drug therapy; Z92.21 Personal history of antineoplastic chemotherapy; Z92.3 Personal history of irradiation; Y92.9 Unspecified place or not applicable; Z93.1 Gastrostomy status; Z88.0 Allergy status to penicillin; Z87.891 Personal history of nicotine dependence
CPT/HCPCS: 36415; 71046; 76000; 76775; 78452; 78582; 80048; 80053; 81003; 81015; 83735; 83880; 84100; 84484; 84550; 85025; 85652; 86141; 87086; 93005; 93017; 93306; 93308; 99222; 99232; A9270-GY; A9502; A9540; A9558; J0690; J1642; J1644; J1940; J2405; J2785; J3475; J3490

== ENCOUNTER 2021-06-08 03:39 | Observation (INO) ==
[2021-06-08] MEDS ORDERED: Lactated Ringers 1000 ml BAG 1,000 ML IV ONE (04:49)
[2021-06-08] MEDS ORDERED: Pantoprazole VIAL 40 MG VIAL IV ONE (04:50)
[2021-06-08] MEDS ORDERED: Octreotide Acetate 50 MCG in NS 0.9% 50 ML 50 ML IV ONE (04:50)
[2021-06-08] MEDS ORDERED: Pantoprazole 80 mg in NS BAG 80 MG/250 ML BAG IV ONE (04:51)
[2021-06-08 05:43] LABS: ABS Basophils 0.2 10^3/ul (0-0.2); ABS Eosinophils 0.2 10^3/ul (0-0.6); ABS Lymphocytes 1.2 10^3/ul (1.0-4.8); ABS Monocytes 0.6 10^3/ul (0-0.8); ABS Neutrophils 2.3 10^3/ul (1.5-7.7); Hematocrit 38 % (42-52); Hemoglobin 12.8 g/dL (14.0-18.0); Lymphocyte % 27.1 %; Mean Corpuscular HGB Conc 34 g/dL (31-36); Mean Corpuscular Hemoglobin 35 pg (27-31); Mean Corpuscular Volume 102 fL (80-94); Mean Platelet Volume 7.7 fL (7.4-10.4); Platelet Count 249 10^3/uL (150-450); Red Cell Distribution Width 14 % (10-15); White Blood Count 4.5 10^3/uL (3.5-10.8)
[2021-06-08 05:49] LABS: Ammonia 17 mcmol/L (16-53)
[2021-06-08 05:58] LABS: Activated Partial Thrombo Time 24.7 seconds (26.0-38.0); INR 0.96 (0.86-1.15)
[2021-06-08 06:04] LABS: Troponin I 0.01 ng/mL (<0.03)
[2021-06-08 06:05] LABS: Albumin/Globulin Ratio 1.5 (1-3); C Reactive Protein 1.05 mg/L (<8.01); Calcium 9.4 mg/dL (8.6-10.3); Globulin 2.6 g/dL (2-4); Magnesium 1.8 mg/dL (1.9-2.7); Potassium 3.9 mmol/L (3.5-5.0); Total Bilirubin 0.2 mg/dL (0.2-1.0); Total Protein 6.6 g/dL (6.4-8.9)
[2021-06-08 06:07] LABS: BNP 19 pg/mL (<=100)
[2021-06-08 06:16] LABS: Venous Bicarbonate HCO3 23.6 mmol/L (24-28)
[2021-06-08 06:23] LABS: Urine Appearance Clear; Urine Bilirubin Negative (Negative); Urine Blood Negative (Negative); Urine Color Straw; Urine Glucose Negative (Negative); Urine Ketones Negative (Negative); Urine Nitrite Negative (Negative); Urine Protein Negative (Negative); Urine Specific Gravity 1.012 (1.002-1.030); Urine Urobilinogen Negative (Negative)
[2021-06-08] MEDS ORDERED: Iohexol 300 (CONTRAST) 10 ML SDV IV ONE (06:39)
[2021-06-08] MEDS ORDERED: Octreotide Acetate 500 MCG in NS 0.9% 100 ML IV SCH (07:30)
[2021-06-08] MEDS ORDERED: Ondansetron 4 mg VIAL 2 MG/ML 2 ml VIAL IV PRN (10:53)
[2021-06-08] MEDS ORDERED: NS 0.9% 1000 ml BAG 1,000 ML IV SCH (11:00)
[2021-06-08 11:36] LABS: Rapid COVID-19 Molecular Undetected (Undetected)
[2021-06-08 16:30] LABS: Hematocrit 38 % (42-52); Hemoglobin 12.7 g/dL (14.0-18.0)
[2021-06-08] MEDS: Pantoprazole 80 mg in NS BAG 80 MG/250 ML BAG IV SCH (18:44)
[2021-06-09] MEDS: Pantoprazole 80 mg in NS BAG 80 MG/250 ML BAG IV SCH ×3 (04:14→22:17)
[2021-06-09 05:54] LABS: Hematocrit 33 % (42-52); Hemoglobin 11.6 g/dL (14.0-18.0); Mean Corpuscular HGB Conc 35 g/dL (31-36); Mean Corpuscular Hemoglobin 35 pg (27-31); Mean Corpuscular Volume 101 fL (80-94); Mean Platelet Volume 7.7 fL (7.4-10.4); Platelet Count 212 10^3/uL (150-450); Red Cell Distribution Width 13 % (10-15); White Blood Count 4.5 10^3/uL (3.5-10.8)
[2021-06-09] MEDS ORDERED: Midazolam 10 mg/10 ml VIAL 1 mg/ml 10 ml VIAL (10 mg) ONE (16:09)
[2021-06-09] MEDS ORDERED: fentaNYL 100 mcg/2 ml 50 MCG/ML VIAL ONE (16:09)
[2021-06-10] MEDS: Pantoprazole 80 mg in NS BAG 80 MG/250 ML BAG IV SCH (09:21)
[2021-06-10 11:27] VITALS: BP 118/81
== END 2021-06-10 14:00 | disposition home or self-care (01) ==
LOC: ED 03:39 → MEDTELE 03:39
PROVIDERS: ADMIT Hospitalist; ATTEND Hospitalist